=== PATIENT | female | born 1945 | race Caucasian/White ===

== ENCOUNTER 2019-07-30 10:49 | Inpatient (IN) | payer OTHER, BC ==
[~2019-07-30] VITALS: Ht 152.4 cm; Wt 52.6 kg
[2019-07-30 10:55] VITALS: BP 129/74
--- NOTE | 2019-07-30 11:13 | NUR ---
RECEVIED A 74/F FROM EMS FOR MECHANICAL FALL. PT REPORTS THAT SHE WAS IN HER LIVING ROOM AND LOST HER BALANCE. PT DENIES HITTING HEAD. NO LOC. NO ROTATION NOTED. NO OBVIOUS DEFORMITY NOTED. ALERT TO NAME, BIRTHDAY, PLACE, AND EVENT; ABLE TO RECALL ENTIRE FALL. IN BED FOR MSE.
[2019-07-30] MEDS ORDERED: KETOROLAC 60 MG/2 ML VIAL IM ONE (11:25)
--- NOTE | 2019-07-30 11:36 | NUR ---
XRAY AT BEDSIDE.
--- NOTE | 2019-07-30 11:42 | NUR ---
PT REPORTS DECREASE IN PAIN WITH TORADOL ADMIN. RATES PAIN AT 5/10.
--- NOTE | 2019-07-30 13:28 | NUR ---
PT REMAINS IN BED WITH PAIN CONTROLLED. UPDATED ON PLAN OF CARE. NO NEW QUESTIONS OR CONCERNS FROM PATIENT.
[2019-07-30] MEDS ORDERED: ONDANSETRON 4 MG/2 ML VIAL IM/IVP PRN (14:20)
[2019-07-30] MEDS ORDERED: DOCUSATE SODIUM 100 MG GELCAP PO PRN (14:20)
[2019-07-30] MEDS ORDERED: ACETAMINOPHEN 325 MG TAB PO PRN (14:20)
[2019-07-30] MEDS: MORPHINE SULFATE 2 MG/ML SYR IVP PRN ×3 (14:49→23:35)
--- NOTE | 2019-07-30 14:50 | NUR ---
PT C/O 8/10 PAIN; PRN MORPHINE ADMINISTERED
[2019-07-30 14:51] LABS: BASOPHILS % (AUTO) 0.2 % (0.0-2.0); EOSINOPHILS % (AUTO) 0.4 % (0.0-4.0); HEMATOCRIT 36.4 % (36-48); HEMOGLOBIN 11.5 g/dL (12.0-16.0); LYMPHOCYTES # (AUTO) 0.9 K/uL (2.5-16.5); LYMPHOCYTES % (AUTO) 9.8 % (20.5-51.1); MEAN CORPUSCULAR HEMOGLOBIN 31 pg (27-31); MEAN CORPUSCULAR HGB CONC 32 g/dL (33-37); MEAN CORPUSCULAR VOLUME 98.4 fL (80-94); MONOCYTES # (AUTO) 0.7 K/uL (0.8-1.0); MONOCYTES % (AUTO) 7.7 % (1.7-9.3); NEUTROPHILS # (AUTO) 7.1 K/uL (1.8-7.7); NEUTROPHILS % (AUTO) 81.9 % (42.2-75.2); PLATELET COUNT (AUTO) 184 K/uL (140-450); RED BLOOD CELL COUNT(AUTO) 3.69 MIL/uL (4.20-5.40); RED CELL DISTRIBUTION WIDTH 13.5 % (11.6-13.7); WHITE BLOOD COUNT (AUTO) 8.7 K/uL (4.8-10.8)
[2019-07-30 15:28] LABS: APPEARANCE,URINE HAZY (CLEAR); BILIRUBIN,URINE NEGATIVE (NEGATIVE); BLOOD, URINE NEGATIVE (NEGATIVE); COLOR,URINE YELLOW (YELLOW); LEUKOCYTE ESTERASE ,URINE NEGATIVE (NEGATIVE); NITRITE, URINE NEGATIVE (NEGATIVE); PH,URINE 5.5 (5.0-9.0); UGLUCOSE NEGATIVE (NEGATIVE)
[2019-07-30 15:28] LABS: CHOL/HDL RATIO 2.5 (1-4.5); FREE T4 (FREE THYROXINE) 0.77 ng/dL (0.76-1.46); PHOSPHORUS 3.4 mg/dL (2.5-4.9); THYROID STIMULATING HORMONE 0.04 uIU/mL (0.34-3.74)
[2019-07-30 15:34] LABS: BARBITURATE, URINE NEG. ng/ml (NEG <=200); BENZODIAZEPINE, URINE NEG. ng/mL (NEG <=200); CANNABINOID, URINE NEG. ng/mL (NEG <=50); COCAINE, URINE NEG. ng/mL (NEG <=300); OPIATE, URINE POS. ng/mL (NEG <=2000); PHENCYCLIDINE SCREEN,URINE NEG. ng/mL (NEG <=25)
[2019-07-30 15:36] LABS: PROTHROMBIN TIME 10.3 secs (10.8-13.4)
--- NOTE | 2019-07-30 15:46 | NUR ---
Patient will be admitted to care of DR WORRELL. Admited to MED/SURG. Will go to [id number]. Belongings list completed. Report to KIRK SALTER.
[2019-07-30 15:48] LABS: ANION GAP 12.3 (8-16); CARBON DIOXIDE 28.6 mmol/L (21-32); CHLORIDE 107 mmol/L (98-107); CREATININE 0.5 mg/dL (0.6-1.3); GLUCOSE 102 mg/dL (74-106); POTASSIUM 3.9 mmol/L (3.5-5.1); SODIUM SERUM 144 mmol/L (136-145); UREA NITROGEN, BLOOD 21 mg/dL (7-18)
[2019-07-30 16:00] VITALS: BP 133/78
--- NOTE | 2019-07-30 16:00 | NUR ---
RECEIVED REPORT FROM EMERGENCY ROOM NURSE ELISE FOR CONTINUITY OF CARE. PT IN STABLE CONDITION. RESPIRATIONS EVEN AND UNLABORED. SKIN ASSESSMENT COMPLETE. SKIN WARM TO TOUCH. IV INTACT AND PATENT. SAFETY MEASURES IN PLACE. BED IN LOW POSITION. BED ALARM ON. CALL LIGHT AT BEDSIDE. WILL CONTINUE TO MONITOR.
[2019-07-30] MEDS ORDERED: THYR60TA7 PO (17:34)
[2019-07-30] MEDS ORDERED: GABA300C PO (17:34)
[2019-07-30] MEDS ORDERED: LISI-420 PO (17:34)
[2019-07-30] MEDS ORDERED: ALPR0.252 PO (17:34)
[2019-07-30] MEDS ORDERED: VENL37.55 PO (17:34)
[2019-07-30] MEDS ORDERED: BACL10TA4 PO (17:34)
[2019-07-30] MEDS ORDERED: BACLOFEN 10 MG TAB PO PRN (17:40)
--- NOTE | 2019-07-30 17:59 | NUR ---
TALKING WITH SPOUSE AT BEDSIDE. PT IN STABLE CONDITION. BED IN LOW POSITION. BED ALARM ON. CALL LIGHT AT BEDSIDE. WILL CONTINUE TO MONITOR.
--- NOTE | 2019-07-30 19:29 | NUR ---
GAVE REPORT TO DEVELOPMENT SCIENTIST NURSE FOR CONTINUITY OF CARE. PT IN STABLE CONDITION.
--- NOTE | 2019-07-30 19:30 | NUR ---
RECEIVED BEDSIDE REPORT FROM DAY RN. PT IS AAOX4 WITH AT BEDSIDE. NO S/S OF DISTRESS. PT RESPIRATIONS ARE EQUAL AND UNLABORED ON ROOM AIR. LUNG SOUNDS CLEAR. SKIN INTACT PER REPORT. PT ON BEDREST ABLE TO MAKE NEEDS KNOWN. PT WITH LEFT SUPERIOR ISCHIUM AND ISOCHIOPUBIC REMUS FRACTURE. POC DISCUSSED WITH PT AND FAMILY. CALL LIGHT IS WITHIN REACH. WILL CONTINUE TO MONITOR.
--- NOTE | 2019-07-30 20:02 | NUR ---
VSS. PATITO MEDICATION GIVEN PER ORDERS. ADMINISTERED PRN MORPHINE FOR L LEG PAIN 02/12. PT TOLERATED WELL. CALL LIGHT IS WITHIN REACH. WILL CONTINUE TO MONITOR.
[2019-07-30] MEDS: VENLAFAXINE 37.5 MG TAB PO SCH (20:04)
--- NOTE | 2019-07-30 22:00 | NUR ---
VITAL SIGNS ARE WITHIN NORMAL LIMITS. PT DENIES PAIN. NO S/S OF DISTRESS. CALL LIGHT IS WITHIN REACH. WILL CONTINUE TO MONITOR.
[2019-07-31] VITALS: BP 120/64
--- NOTE | 2019-07-31 | NUR ---
VITAL SIGNS ARE WITHIN NORMAL LIMITS. ALL SAFETY MEASURES ARE IN PLACE. CALL LIGHT IS WITHIN REACH. WILL CONTINUE TO MONITOR.
[2019-07-31] MEDS ORDERED: MENTHOL/METHYL 10%-15% 114 GM TUBE TP PRN (01:20)
--- NOTE | 2019-07-31 02:20 | NUR ---
PATIENT IS LAYING IN BED AWAKE. NO S/S OF DISTRESS. SAFETY MEASURES ARE IN PLACE. CALL LIGHT IS WITHIN REACH.
[2019-07-31] MEDS: MORPHINE SULFATE 2 MG/ML SYR IVP PRN ×6 (02:45→20:41)
--- NOTE | 2019-07-31 04:07 | NUR ---
PATIENT IS AWAKE LAYING COMFORTABLY IN BED. SAFETY MEASURES ARE IN PLACE. CALL LIGHT IS WITHIN REACH.
[2019-07-31] MEDS ORDERED: THYROID 60 MG TAB PO SCH ×2 (06:30)
--- NOTE | 2019-07-31 06:51 | NUR ---
PT IS RESTING COMFORTABLY IN BED NO S/S OF DISTRESS. CALL LIGHT IS WITHIN REACH. PT IS STABLE. WILL ENDORSE TO DAY RN.
--- NOTE | 2019-07-31 07:20 | NUR ---
RECEIVED BEDSIDE REPORT FROM NIGHTSHIFT NURSE. PT RESTING IN BED UPON ARRIVAL. RESPIRATIONS EVEN AND UNLABORED WITH NO SOB OR RESPIRATORY DISTRESS. SKIN WARM AND DRY TO TOUCH. IV SITE IN RIGHT HAND 22G IS CLEAN, DRY, AND INTACT. SAFETY MEASURES IN PLACE. WILL CONTINUE TO MONITOR
[2019-07-31 08:00] VITALS: BP 126/73
[2019-07-31 08:08] LABS: T4 (THYROXINE) 5.3 ug/dL (4.5-12.0)
[2019-07-31] MEDS: GABAPENTIN 300 MG CAP PO SCH ×3 (08:16→16:37)
[2019-07-31] MEDS: HYDROcodone/APAP 7.5/325 MG 1 TAB PO PRN (08:16)
[2019-07-31] MEDS: LISINOPRIL 20 MG TAB PO SCH (08:17)
[2019-07-31] MEDS: VENLAFAXINE 37.5 MG TAB PO SCH ×2 (08:17→20:39)
[2019-07-31] MEDS: ALPRAZolam 0.25 MG TAB PO PRN (08:17)
--- NOTE | 2019-07-31 08:24 | NUR ---
ADMINISTERED SCHED MED PRESCRIBED PER MD ORDER. PT TOLERATED WELL. MEDICATION EDUCATION PERFORMED. PT VERBALIZED UNDERSTANDING. SAFETY MEASURES IN PLACE. WILL CONTINUE TO MONITOR.
--- NOTE | 2019-07-31 08:25 | NUR ---
PATIENT HAS BEEN SCREENED AND CATEGORIZED MODERATE NUTRITION RISK. PATIENT WILL BE SEEN WITHIN 3-5 DAYS OF ADMISSION. 08/02/19 08/04/[address]
[2019-07-31 09:18] LABS: BASOPHILS % (AUTO) 0.5 % (0.0-2.0); EOSINOPHILS # (AUTO) 0.1 K/uL (0-0.4); EOSINOPHILS % (AUTO) 2.4 % (0.0-4.0); HEMATOCRIT 35.3 % (36-48); HEMOGLOBIN 11.6 g/dL (12.0-16.0); LYMPHOCYTES # (AUTO) 0.5 K/uL (2.5-16.5); LYMPHOCYTES % (AUTO) 9.3 % (20.5-51.1); MEAN CORPUSCULAR HEMOGLOBIN 31 pg (27-31); MEAN CORPUSCULAR HGB CONC 33 g/dL (33-37); MONOCYTES # (AUTO) 0.5 K/uL (0.8-1.0); MONOCYTES % (AUTO) 8.2 % (1.7-9.3); NEUTROPHILS # (AUTO) 4.6 K/uL (1.8-7.7); NEUTROPHILS % (AUTO) 79.6 % (42.2-75.2); PLATELET COUNT (AUTO) 158 K/uL (140-450); RED BLOOD CELL COUNT(AUTO) 3.72 MIL/uL (4.20-5.40); RED CELL DISTRIBUTION WIDTH 13.3 % (11.6-13.7); WHITE BLOOD COUNT (AUTO) 5.8 K/uL (4.8-10.8)
[2019-07-31 09:34] LABS: ANION GAP 12.1 (8-16); CARBON DIOXIDE 28.6 mmol/L (21-32); CHLORIDE 104 mmol/L (98-107); CREATININE 0.6 mg/dL (0.6-1.3); GLUCOSE 183 mg/dL (74-106); POTASSIUM 3.7 mmol/L (3.5-5.1); SODIUM SERUM 141 mmol/L (136-145); UREA NITROGEN, BLOOD 17 mg/dL (7-18)
[2019-07-31 09:37] LABS: MAGNESIUM 1.9 mg/dL (1.8-2.4); PHOSPHORUS 2.4 mg/dL (2.5-4.9)
--- NOTE | 2019-07-31 10:26 | NUR ---
LEFT KNEE ABRASIONS WITH 2 PARTIAL THICKNESS LOSS OF SKIN AND LARGEST 1X1X0.1CM, SMALLEST ONE IS 0.5X0.5X0.1CM, WOUND BEDS ARE RED, MOIST, NO ODOR, HANH WOUND SKIN INTACT, NO ERYTHEMA, NO S/S OF INFECTION. POC DISCUSSED WITH PT. PT. VERBALIZES UNDERSTANDING. RECOMMEND TO CLEANSE LEFT KNEE ABRASIONS WITH NS. PAT DRY, APPLY HYDROGEL AND COVER WITH ISLAND DRESSING QD AND PRN IF SOILING.
--- NOTE | 2019-07-31 10:30 | NUR ---
HOURLY ROUNDING. PT RESTING IN BED UPON ARRIVAL. RESPIRATIONS EVEN AND UNLABORED WITH NO SOB OR RESPIRATORY DISTRESS. SKIN WARM AND DRY TO TOUCH. SAFETY MEASURES IN PLACE. WILL CONTINUE TO MONITOR
--- NOTE | 2019-07-31 10:52 | NUR ---
DISCHARGE PLANNING: THIS IS A 74 Y/O FEMALE PATIENT FROM HOME, WHO CAME IN DUE TO MECHANICAL FALL. PAST MEDICAL HISTORY INCLUDE HYPOTHYROIDISM, NUMEROUS BACK SURGERIES, BROKEN TIBIA AND FIBULA. INITIAL DIAGNOSIS OF LEFT SUPERIOR ISCHIUM AND ISCHIOPUBIC RAMUS FRACTURE. CURRENT LABS INCLUDE WBC 5.8, H/H 11.6/35.3, NA/K 144/3.9, BUN/CREA 21/0.5. ORTHO CONSULT WITH DR. NOEL IN PLACE, NO SURGERY AT THIS TIME AND MAY AMBULATE WITH A WALKER TOLERATED. BENJA HARO PENDING. DC PLAN TO SNF FOR PT ONCE STABLE. Addendum: 07/31/19 at 1149 by Dorie Castillo CM MET WITH THE PATIENT AT THE BEDSIDE TO DISCUSS DC PLAN TO SNF FOR PT AND IS IN AGREEMENT. SHE STATED "THAT IS THE BEST OPTION WE HAVE AT THIS TIME." IM AND CHOICE OF VENDOR LETTERS PROVIDED TO THE PATIENT, SHE STATED SHE WILL WAIT FOR HER TO READ AND SIGN IT. WILL FOLLOW UP.
--- NOTE | 2019-07-31 12:22 | NUR ---
HOURLY ROUNDING. PT ASLEEP IN BED. RESPONSIVE TO VERBAL AND TACTILE STIMULI. ABLE TO MAKE NEEDS KNOWN. RESPIRATIONS EVEN AND UNLABORED WITH NO SOB OR RESPIRATORY DISTRESS. SKIN WARM AND DRY TO TOUCH. SAFETY MEASURES IN PLACE. WILL CONTINUE TO MONITOR
[2019-07-31] MEDS: SKINTEGRITY HYDROGEL TP SCH (13:24)
--- NOTE | 2019-07-31 13:25 | NUR ---
ADMINISTERED SCHED MED PRESCRIBED PER MD ORDER. PT TOLERATED WELL. PT CALLED AND COMPLAINED OF SEVERE PAIN. PRN PAIN MEDICATION ADMINISTERED PRESCRIBED PER MD ORDER. MEDICATION EDUCATION PERFORMED. PT VERBALIZED UNDERSTANDING. SAFETY MEASURES IN PLACE. WILL CONTINUE TO MONITOR.
[2019-07-31 16:00] VITALS: BP 117/66
--- NOTE | 2019-07-31 16:41 | NUR ---
ADMINISTERED SCHED MED PRESCRIBED PER MD ORDER. PT TOLERATED WELL. MEDICATION EDUCATION PERFORMED. PT VERBALIZED UNDERSTANDING. SAFETY MEASURES IN PLACE. WILL CONTINUE TO MONITOR.
--- NOTE | 2019-07-31 18:20 | NUR ---
PT RESTING IN BED UPON ARRIVAL. ABLE TO MAKE NEEDS KNOWN.RESPIRATIONS EVEN AND UNLABORED WITH NO SOB OR RESPIRATORY DISTRESS. SKIN WARM AND DRY TO TOUCH. SAFETY MEASURES IN PLACE. WILL CONTINUE TO MONITOR
--- NOTE | 2019-07-31 19:02 | NUR ---
ENDORSED AT BEDSIDE TO NIGHTSHIFT NURSE. PT RESTING IN BED UPON ARRIVAL. ABLE TO MAKE NEEDS KNOWN.RESPIRATIONS EVEN AND UNLABORED WITH NO SOB OR RESPIRATORY DISTRESS. SKIN WARM AND DRY TO TOUCH. SAFETY MEASURES IN PLACE. PT IS STABLE
--- NOTE | 2019-07-31 19:05 | NUR ---
RECEIVED BEDSIDE REPORT FROM DAY RN. PT IS AAOX4 . PT RESPIRATIONS ARE EQUAL AND UNLABORED ON ROOM AIR. LUNG SOUNDS CLEAR. HAS ABRASION ON L KNEE COVERED WITH ISLAND DRESSING. C/D/I. PT WITH LEFT SUPERIOR ISCHIUM AND ISOCHIOPUBIC REMUS FRACTURE. PT ON BEDREST ABLE TO MAKE NEEDS KNOWN. POC DISCUSSED WITH PT AND FAMILY. CALL LIGHT IS WITHIN REACH. WILL CONTINUE TO MONITOR.
--- NOTE | 2019-07-31 20:41 | NUR ---
PATITO MEDICATIONS GIVEN. ADMINISTERED MORPHINE PRN FOR SEVERE HIP PAIN 02/12 PT TOLERATED WELL. PSS DELIVERY PROFESSIONAL AT BEDSIDE REGARDING PATIENT'S BANK ACCOUNT FRAUD FROM MONTHS AGO. PT IS STABLE. ALL NEEDS MET. WILL CONTINUE TO MONITOR.
--- NOTE | 2019-07-31 22:23 | NUR ---
PT IS SLEEPING COMFORTABLY IN BED WITH EYES CLOSED. CHEST RISE AND FALL NOTED. ALL SAFETY MEASURES ARE IN PLACE. CALL LIGHT IS WITHIN REACH.
[2019-08-01] VITALS: BP 135/83
[2019-08-01] MEDS: MORPHINE SULFATE 2 MG/ML SYR IVP PRN ×5 (00:26→21:42)
--- NOTE | 2019-08-01 00:26 | NUR ---
VITAL SIGNS ARE WITHIN NORMAL LIMITS. C/C L HIP PAIN 9/10 PRN MORPHINE GIVEN PER ORDERS. PT TOLERATED WELL. ALL SAFETY MEASURES ARE IN PLACE. WILL CONTINUE TO MONITOR.
--- NOTE | 2019-08-01 02:02 | NUR ---
PATIENT IS SLEEPING COMFORTABLY IN BED WITH EYES CLOSED. NO S/S OF DISTRESS. CHEST RISE AND FALL NOTED.
--- NOTE | 2019-08-01 04:30 | NUR ---
PATIENT IS LAYING COMFORTABLY IN BED. NO S/S OF DISTRESS. CALL LIGHT IS WITHIN REACH. WILL CONTINUE TO MONITOR.
[2019-08-01 06:59] LABS: BASOPHILS # (AUTO) 0.1 K/uL (0.00-0.22); BASOPHILS % (AUTO) 1.5 % (0.0-2.0); EOSINOPHILS # (AUTO) 0.2 K/uL (0-0.4); EOSINOPHILS % (AUTO) 3.2 % (0.0-4.0); HEMATOCRIT 35.5 % (36-48); HEMOGLOBIN 11.8 g/dL (12.0-16.0); LYMPHOCYTES # (AUTO) 0.7 K/uL (2.5-16.5); LYMPHOCYTES % (AUTO) 10.6 % (20.5-51.1); MEAN CORPUSCULAR HEMOGLOBIN 32 pg (27-31); MEAN CORPUSCULAR HGB CONC 33 g/dL (33-37); MEAN CORPUSCULAR VOLUME 94.7 fL (80-94); MONOCYTES # (AUTO) 0.6 K/uL (0.8-1.0); MONOCYTES % (AUTO) 9.5 % (1.7-9.3); NEUTROPHILS % (AUTO) 75.2 % (42.2-75.2); PLATELET COUNT (AUTO) 156 K/uL (140-450); RED BLOOD CELL COUNT(AUTO) 3.74 MIL/uL (4.20-5.40); RED CELL DISTRIBUTION WIDTH 13.1 % (11.6-13.7); WHITE BLOOD COUNT (AUTO) 6.6 K/uL (4.8-10.8)
--- NOTE | 2019-08-01 07:07 | NUR ---
GAVE BEDSIDE REPORT TO DAY RN. PT ENDORSED IN STABLE CONDITION.
[2019-08-01 07:17] LABS: PHOSPHORUS 2.3 mg/dL (2.5-4.9)
[2019-08-01 07:18] LABS: ANION GAP 10.1 (8-16); CARBON DIOXIDE 28.8 mmol/L (21-32); CHLORIDE 104 mmol/L (98-107); CREATININE 0.5 mg/dL (0.6-1.3); GLUCOSE 105 mg/dL (74-106); POTASSIUM 3.9 mmol/L (3.5-5.1); SODIUM SERUM 139 mmol/L (136-145); UREA NITROGEN, BLOOD 16 mg/dL (7-18)
--- NOTE | 2019-08-01 07:46 | NUR ---
RECEIVED BEDSIDE REPORT FROM PM RN PT AWAKE IN BED PT APPEARS STABLE AND IN NO APPARENT DISTRESS. ALL SAFETY MEASURES ARE IN PLACE WILL CONTINUE TO MONITOR.
[2019-08-01 08:30] VITALS: BP 130/72
--- NOTE | 2019-08-01 09:13 | NUR ---
FREQUENT ROUNDING ON PT PT AWAKE IN BED PT FAMILY IS AT BEDSIDE. ALL SAFETY MEASURES ARE IN PLACE WILL CONTINUE TO MONITOR
[2019-08-01] MEDS: GABAPENTIN 300 MG CAP PO SCH ×3 (09:14→17:39)
[2019-08-01] MEDS: LISINOPRIL 20 MG TAB PO SCH (09:14)
[2019-08-01] MEDS: VENLAFAXINE 37.5 MG TAB PO SCH ×2 (09:14→21:20)
[2019-08-01] MEDS: HYDROcodone/APAP 7.5/325 MG 1 TAB PO PRN (10:44)
--- NOTE | 2019-08-01 10:44 | NUR ---
NORCO ADMINISTERED FOR PRN MEDICATION FOR PATIENT PAIN 11/12. WILL CONTINUE TO ASSESS PATIENT.
--- NOTE | 2019-08-01 11:15 | NUR ---
Sand Worker Note: I met with patient at bedside. Patient alert and oriented x4. Per patient, she would like to be transferred to [facility] upon discharge. I faxed inquiry to [facility]. Melodie from [facility] came and met with patient and patient's . Per Melodie from [facility], patient has been accepted and may go to room 238B upon discharge, accepting MD is , made aware. Addendum: 08/02/19 at 1115 by Radha Hitchcock CM Pt to be DC to [facility] today, transportation arranged with [facility] through pt's insurance; medical necessity form faxed. Met with pt at the bedside to update her about discharge at 1300. Pt aware and agreeable; pt stated she will inform her . Nursing staff aware. INEZ Newton/DOROTHY
--- NOTE | 2019-08-01 13:00 | NUR ---
FREQUENT ROUNDING ON PT PT APPEARS STABLE AND IN NO APPARENT DISTRESS. ALL SAFETY MEASURES ARE IN PLACE WILL CONTINUE TO MONITOR.
[2019-08-01] MEDS: SKINTEGRITY HYDROGEL TP SCH (13:29)
--- NOTE | 2019-08-01 13:29 | NUR ---
ADMINISTERED MORPHINE IVP PRN FOR PAIN PER PATIENT REQUEST PT STATED 8/10 PAIN IN HER LEG. WILL CONTINUE TO MONITOR PT.
--- NOTE | 2019-08-01 15:34 | NUR ---
FREQUENT ROUNDING ON PT PT APPEARS STABLE AND IN NO APPARENT DISTRESS. ALL SAFETY MEASURES ARE IN PLACE WILL CONTINUE TO MONITOR
--- NOTE | 2019-08-01 16:00 | NUR ---
MEDICATION FOLLOW UP. GABI THYROID MEDICATION WILL BE BROUGHT FROM HOME BY PATIENTS TOMORROW 08/02. Addendum: 08/01/19 at 1721 by Jazmine Diaz RN PHARMACIST MINOO MADE AWARE.
[2019-08-01 16:14] VITALS: BP 91/56
--- NOTE | 2019-08-01 17:34 | NUR ---
FREQUENT ROUNDING ON PT PT APPEARS STABLE AND IN NO APPARENT DISTRESS. ALL SAFETY MEASURES ARE IN PLACE
--- NOTE | 2019-08-01 19:18 | NUR ---
ENDORSED PT TO PM RN PT AWAKE IN BED PT APPEARS STABLE AND IN NO APPARENT DISTRESS, ALL SAFETY MEASURES ARE IN PLACE WILL CONTINUE TO MONITOR.
--- NOTE | 2019-08-01 19:19 | NUR ---
RECD. RESTING IN BED, AWAKE, A/OX4. RESPIRATION EVEN AND UNLABORED. IV SALINE LOCK AT THE RIGHT HAND G22, PATENT AND INTACT. SAFETY MEASURES ENFORCED. BED IN THE LOWEST POSITION, CALL LIGHT IN REACH. PAIN IN THE LEFT HIP 1/10, STATED TOLERABLE. PLAN OF CARE FOR THE SHIFT DISCUSSED. VERBALIZED UNDERSTANDING. DENIES PAIN 0/10.
[2019-08-01 20:00] VITALS: BP 123/65
--- NOTE | 2019-08-01 21:00 | NUR ---
ASSISTED WITH THE BED NELSON TO VOID. VOIDED 100 ML DARK YELLOW URINE.
--- NOTE | 2019-08-01 23:00 | NUR ---
ASSISTED WITH THE BEDPAN TO VOID.
--- NOTE | 2019-08-01 23:28 | NUR ---
Patient's Plan of Care was discussed and reviewed with WALL MAN: MAGDALENA KING
--- NOTE | 2019-08-02 00:30 | NUR ---
SLEEPING COMFORTABLY IN BED.
[2019-08-02] MEDS: MORPHINE SULFATE 2 MG/ML SYR IVP PRN ×3 (00:34→06:43)
--- NOTE | 2019-08-02 02:00 | NUR ---
ASSISTED WITH THE BEDPAN TO VOID.
[2019-08-02 03:37] VITALS: BP 110/62
--- NOTE | 2019-08-02 04:00 | NUR ---
SLEEPING COMFORTABLY IN BED.
--- NOTE | 2019-08-02 06:45 | NUR ---
WITH ANXIETY, MEDICATED WITH XANAX PER MD ORDER.
[2019-08-02] MEDS: ALPRAZolam 0.25 MG TAB PO PRN (06:48)
--- NOTE | 2019-08-02 07:17 | NUR ---
CONDITION REMAIN STABLE. SLEEPING COMFORTABLY IN BED. ENDORSED TO AM SHIFT NURSE FOR CONTINUITY OF CARE.
--- NOTE | 2019-08-02 07:18 | NUR ---
RECEIVED BEDSIDE REPORT FROM WRIST LINER NURSE. PT LYING IN BED SUPINE. AA&OX4. RESPIRATIONS EVEN AND UNLABORED ON RA. DENIES PAIN. NO SIGNS OF DISTRESS NOTED. SKIN CLEAN AND DRY. IV ON R HAND 22 G, DRY, PATENT, AND INTACT, SALINE LOCK. ABRASION ON LEFT KNEE, COVERED WITH DRESSING. DRESSING IS CLEAN AND DRY. PATIENT IS ABLE TO USE THE BEDPAN WITH ASSIST. DISCUSSED PLAN OF CARE WITH PATIENT AND PATIENT VERBALIZED UNDERSTANDING. SAFETY MEASURES IN PLACE. CALL LIGHT WITHIN REACH, BED IN LOW POSITION. WILL CONTINUE TO MONITOR.
[2019-08-02 08:00] VITALS: BP 117/67
[2019-08-02] MEDS: VENLAFAXINE 37.5 MG TAB PO SCH (09:09)
[2019-08-02] MEDS: GABAPENTIN 300 MG CAP PO SCH ×2 (09:09→13:27)
[2019-08-02] MEDS: LISINOPRIL 20 MG TAB PO SCH (09:09)
--- NOTE | 2019-08-02 09:10 | NUR ---
CHECKED BP PRIOR TO MEDS ADMINISTRATION, BP 110/ 59 PULSE 102, DENIED PAIN, SOB AND DIZZINESS. ADMINISTERED MEDS PER MD ORDER, MEDS EDUCATION PROVIDED TO PT AND PT VERBALIZED UNDERSTANDING. PT TOLERATED PO MEDS WELL. PT IS EATING BANANA AND USING HER PHONE ON BED AT THIS TIME. NO SIGNS OF DISTRESS NOTED. SAFETY MEASURES IN PLACE. BED ALARM ACTIVATED. INSTRUCTED PT TO USE THE CALL LIGHT FOR ANY ASSISTANCE AND PT AWARE.
--- NOTE | 2019-08-02 11:22 | NUR ---
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 PT AWAKE AND LOOKING INTO HER PURSE AT THIS TIME. DENIED PAIN, SOB AND DIZZINESS. NO SIGNS OF DISTRESS NOTED. SAFETY MEASURES IN PLACE. BED ALARM ACTIVATED.
--- NOTE | 2019-08-02 11:25 | NUR ---
SPOKE WITH PT'S BONIFACIO WITH PT'S CELLPHONE. 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 BONIFACIO WAS AWARE AND AGREEABLE. PT IS TALKING TO BONIFACIO AT THIS TIME. NO SIGNS OF DISTRESS NOTED. SAFETY MEASURES IN PLACE. BED ALARM ACTIVATED.
--- NOTE | 2019-08-02 11:29 | NUR ---
CALLED [facility] AND SPOKE WITH VITA BRADLEY. PROVIDED FULL REPORT AND ANSWERED ALL VITA'S QUESTIONS. VITA WAS AWARE THAT PT IS GOING TO TRANSFER TO HER FACILITY AT 1300 FOR PT. PROVIDED A CALL BACK NUMBER TO VITA FOR ANY FURTHER INQUIRY.
[2019-08-02] MEDS: HYDROcodone/APAP 7.5/325 MG 1 TAB PO PRN (11:58)
--- NOTE | 2019-08-02 11:58 | NUR ---
PT COMPLAINED SHE HAS 6/10 PAIN ON HER KNEE, REPOSITIONED AND TAUGHT RELAXATION TECHNIQUE, PT STATED "I STILL HAVE PAIN." MEDICATED WITH PRN PAIN MED NORCO PO, MED EDUCATION PROVIDED TO PT, AND PT SAID OK. PT TOLERATED MED WELL. PT AWAKE AND RESTING ON BED AT THIS TIME. NO SIGNS OF DISTRESS NOTED. SAFETY MEASURES IN PLACE. BED ALARM ACTIVATED.
--- NOTE | 2019-08-02 12:31 | NUR ---
WOUND CARE PROVIDED, CLEANSED WITH NS AND PAD DRY. APPLIED DRESSING AND SECURE. WOUND EDUCATION PROVIDED TO PT AND PT SAID OK. WOUND PICTURE TAKEN. PT TOLERATED WELL. NO SIGNS OF DISTRESS NOTED. PT IS GOING TO HAVE LUNCH AT THIS TIME. SAFETY MEASURES IN PLACE. BED ALARM ACTIVATED.
[2019-08-02] MEDS: SKINTEGRITY HYDROGEL TP SCH (13:28)
--- NOTE | 2019-08-02 13:28 | NUR ---
ADMINISTERED MED PER MD ORDER, MED EDUCATION PROVIDED AND PT TOLERATED WELL. [facility] IS AT BEDSIDE. PT IS GETTING READY FOR TRANSFER. NO SIGNS OF DISTRESS NOTED.
--- NOTE | 2019-08-02 13:40 | NUR ---
DISCHARGE INSTRUCTION PROVIDED TO PT AT BEDSIDE. EDUCATED PT ON FOLLOW UP WITH MD, DIAGNOSIS, MEDICATION REGIMEN, SIDE EFFECTS, WEIGHTBEARING, WOUND CARE AND LIFE STYLE. ANSWERED ALL PT'S QUESTIONS AND PT VERBALIZED UNDERSTANDING. REMOVED IV AND CANNULA INTACT AND NO BLEEDING AT IV SITE. REMOVED ALL ARM BANDS. PT CHANGED INTO PINK BY SALES MARKETING MANAGER. PT IS UP TO DATE WITH ALL VACCINATION. PROVIDED PRINTED OUT DISCHARGE PACKAGE TO PT. PT TOOK ALL HER BELONGINGS. PT IS GOING TO TRANSFER AT THIS TIME ACCOMPANY BY [facility] TRANSPORTATION PERSONNEL. PT IS IN STABLE CONDITION.
== END 2019-08-02 13:40 | DRG 536 ==
LOC: MED 10:49 → EDBEDREQTM 14:02 → MTU 14:16
PROVIDERS: ADMIT General Practice; ATTEND General Practice
DX: S32.512A Fracture of superior rim of left pubis, initial encounter for closed fracture (principal); E03.9 Hypothyroidism, unspecified; Z87.891 Personal history of nicotine dependence; Z90.49 Acquired absence of other specified parts of digestive tract; Z98.51 Tubal ligation status; I51.7 Cardiomegaly; M54.9 Dorsalgia, unspecified; F39 Unspecified mood [affective] disorder; W18.39XA Other fall on same level, initial encounter; Y93.89 Activity, other specified; Y92.89 Other specified places as the place of occurrence of the external cause; Y99.8 Other external cause status
CPT/HCPCS: 36415; 71045; 73502; 73700; 80048; 80305; 81003; 82150; 83036; 83605; 83690; 83735; 83880; 84100; 84436; 84439; 84443; 84479; 84484; 85025; 85610; 85730; 87081; 93005; 96372; 96374; 97110; 97112; 97116; 97161-GP; 97530; 99285; A6248; J1644; J1885; J2270; Q0092

== ENCOUNTER 2022-05-17 12:57 | Emergency (ER) | payer OTHER, BC ==
[~2022-05-17] VITALS: Ht 152.4 cm; Wt 54.9 kg
[~2022-05-17 12:57] MED LIST: CALC-1646 PO; CARV6.25 PO; LISI5TAB18 PO; THYR60TA7 PO; VENL37.55 PO
--- NOTE | 2022-05-17 13:00 | NUR ---
Nancy berumen in ED - 05/17/22 at 1303 by MEDRJJ [pt to er bed [facility]
[2022-05-17 13:28] VITALS: BP 109/66
--- NOTE | 2022-05-17 13:34 | NUR ---
PT AMBULATED TO BED 5
--- NOTE | 2022-05-17 13:45 | NUR ---
77YO FEMALE PT C/O GENERAL WEAKNESSED AND LIGHTHEADEDNESS X"FEWDAYS". PT STATES FEELING "LOW IN ENERGY" AND SLEEPING MORE THAN USUAL. IMCHAEL CLEAR LUNG SOUNDS. DENIES N/V/D, FEVER, CHILLS, CHEST PAIN OR SOB. PT AAOX4, RESPIRATIONS EVEN AND UNLABORED. AMBULATORY USING WALKER. HX: HTN, HYPOTHYROID, CHF NKA
[2022-05-17] MEDS ORDERED: NACL 0.9% 500 ML IV ONE (14:25)
--- NOTE | 2022-05-17 14:45 | NUR ---
XRAY AT BEDSIDE
--- NOTE | 2022-05-17 14:47 | NUR ---
LAB AT BEDSIDE
--- NOTE | 2022-05-17 14:47 | NUR ---
pt swabbed for covid(radha) and flu. handed to lab
[2022-05-17 15:01] LABS: BASOPHILS % (AUTO) 0.5 % (0.0-2.0); EOSINOPHILS % (AUTO) 0.7 % (0.0-4.0); HEMATOCRIT 40.5 % (36-48); HEMOGLOBIN 13.3 g/dL (12.0-16.0); LYMPHOCYTES % (AUTO) 14.1 % (20.5-51.1); MEAN CORPUSCULAR HEMOGLOBIN 31 pg (27-31); MEAN CORPUSCULAR HGB CONC 33 g/dL (33-37); MEAN CORPUSCULAR VOLUME 93.7 fL (80-94); MONOCYTES # (AUTO) 0.7 K/uL (0.8-1.0); MONOCYTES % (AUTO) 10.4 % (1.7-9.3); NEUTROPHILS # (AUTO) 5.4 K/uL (1.8-7.7); NEUTROPHILS % (AUTO) 74.3 % (42.2-75.2); PLATELET COUNT (AUTO) 169 K/uL (140-450); RED BLOOD CELL COUNT(AUTO) 4.32 MIL/uL (4.20-5.40); RED CELL DISTRIBUTION WIDTH 13.5 % (11.6-13.7); WHITE BLOOD COUNT (AUTO) 7.2 K/uL (4.8-10.8)
[2022-05-17 15:24] LABS: ALBUMIN 3.4 g/dL (3.4-5.0); ANION GAP 11.4 (8-16); ASPARTATE AMINOTRANSFERASE 23 U/L (15-37); CARBON DIOXIDE 28.8 mmol/L (21-32); CHLORIDE 106 mmol/L (98-107); GLUCOSE 105 mg/dL (74-106); POTASSIUM 4.2 mmol/L (3.5-5.1); SODIUM SERUM 142 mmol/L (136-145); TOTAL BILIRUBIN 0.5 mg/dL (0.0-1.0); UREA NITROGEN, BLOOD 32 mg/dL (7-18)
[2022-05-17 17:04] LABS: BILIRUBIN,URINE NEGATIVE (NEGATIVE); BLOOD, URINE TRACE-I (NEGATIVE); COLOR,URINE YELLOW (YELLOW); LEUKOCYTE ESTERASE ,URINE 1+ (NEGATIVE); NITRITE, URINE NEGATIVE (NEGATIVE); UGLUCOSE NEGATIVE (NEGATIVE)
[2022-05-17 17:10] LABS: APPEARANCE,URINE HAZY (CLEAR)
[2022-05-17 17:27] LABS: RBC,URINE 0-5 /HPF (0-5); WBC,URINE 0-5 /HPF (0-5)
[2022-05-17] MEDS ORDERED: CEPH-588 PO (17:31)
[2022-05-17] MEDS ORDERED: cefTRIAXone 1,000 MG VIAL ONE (17:34)
--- NOTE | 2022-05-17 18:20 | NUR ---
IV removed, catheter intact and site benign. Applied folded 4x4 gauze and tape to stop bleeding.
[2022-05-17 18:25] VITALS: BP 120/66
--- NOTE | 2022-05-17 18:25 | NUR ---
Patient discharged with v/s stable. Written and verbal after care instructions FOR UTI AND DEHYDRATION given and explained. Patient alert, oriented and verbalized understanding of instructions. Ambulatory with steady gait. All questions addressed prior to discharge. ID band removed. Patient advised to follow up with PMD. Rx of KEFLEX given. Opportunity to ask questions provided and answered.
--- NOTE | 2022-05-17 19:43 | NUR ---
Chart checked and completed. The patient's care was reviewed and supervised by Haily Yun RN.
== END 2022-05-17 18:25 | disposition home or self-care (01) ==
LOC: MED 12:57
DX: N39.0 Urinary tract infection, site not specified (principal); Z20.822 Contact with and (suspected) exposure to COVID-19; E86.0 Dehydration; I11.0 Hypertensive heart disease with heart failure; I50.9 Heart failure, unspecified; E03.9 Hypothyroidism, unspecified; Z79.899 Other long term (current) drug therapy
CPT/HCPCS: 36415; 71045; 80053; 81001; 85025; 87086; 87426; 87804; 93005; 96361; 96365; 99285; J0696; J7030; Q0092

== ENCOUNTER 2022-07-13 14:21 | Inpatient (IN) | payer OTHER, BC ==
[~2022-07-13] VITALS: Ht 167.6 cm; Wt 52.2 kg
[~2022-07-13 14:21] MED LIST changes: +CEPH-588 PO
--- NOTE | 2022-07-13 14:23 | NUR ---
Pt to bed 12 from [facility] sim[facility]
[2022-07-13 14:26] VITALS: BP 106/60
--- NOTE | 2022-07-13 14:48 | NUR ---
Pt hypotensive recycled B/P called Dr Esposito to bedside. Placed pt in tredenlenberg position. Denies any s/sx of hypotention at this time
[2022-07-13] MEDS ORDERED: NACL 0.9% 500 ML IV ONE (15:00)
[2022-07-13 15:23] LABS: BASOPHILS % (AUTO) 0.4 % (0.0-2.0); EOSINOPHILS # (AUTO) 0.1 K/uL (0-0.4); EOSINOPHILS % (AUTO) 1.3 % (0.0-4.0); HEMATOCRIT 44.3 % (36-48); HEMOGLOBIN 14.5 g/dL (12.0-16.0); LYMPHOCYTES % (AUTO) 15.3 % (20.5-51.1); MEAN CORPUSCULAR HEMOGLOBIN 31 pg (27-31); MEAN CORPUSCULAR HGB CONC 33 g/dL (33-37); MEAN CORPUSCULAR VOLUME 93.5 fL (80-94); MONOCYTES # (AUTO) 0.7 K/uL (0.8-1.0); MONOCYTES % (AUTO) 11.2 % (1.7-9.3); NEUTROPHILS # (AUTO) 4.7 K/uL (1.8-7.7); NEUTROPHILS % (AUTO) 71.8 % (42.2-75.2); PLATELET COUNT (AUTO) 122 K/uL (140-450); RED BLOOD CELL COUNT(AUTO) 4.73 MIL/uL (4.20-5.40); RED CELL DISTRIBUTION WIDTH 13.1 % (11.6-13.7); WHITE BLOOD COUNT (AUTO) 6.6 K/uL (4.8-10.8)
--- NOTE | 2022-07-13 15:35 | NUR ---
Pt found sitting up in bed from radiology with low B/P educated department and pt placed in trendenlenberg with pt pressure raising
[2022-07-13 15:44] LABS: ALBUMIN 3.5 g/dL (3.4-5.0); ANION GAP 11.6 (8-16); ASPARTATE AMINOTRANSFERASE 49 U/L (15-37); CARBON DIOXIDE 27.4 mmol/L (21-32); CHLORIDE 106 mmol/L (98-107); CREATININE 1.1 mg/dL (0.6-1.3); GLUCOSE 136 mg/dL (74-106); SODIUM SERUM 141 mmol/L (136-145); TOTAL BILIRUBIN 0.3 mg/dL (0.0-1.0); UREA NITROGEN, BLOOD 18 mg/dL (7-18)
--- NOTE | 2022-07-13 16:20 | NUR ---
Pt returned from CT. IV out of placed. Replaced with new one on RFA 22g
[2022-07-13] MEDS ORDERED: AZITHROMYCIN 500 MG in DEXTROSE 5% 250 ML IV ONE (17:20)
[2022-07-13] MEDS ORDERED: cefTRIAXone 1,000 MG VIAL ONE (17:28)
[2022-07-13] MEDS ORDERED: AZITHROMYCIN 500 MG INJ VIAL IV ONE (17:28)
[2022-07-13] MEDS ORDERED: ALBUTEROL 0.083% 2.5 MG/3 ML NEBU INH PRN (18:10)
[2022-07-13] MEDS ORDERED: NACL 0.9% 1,000 ML IV ONE (18:10)
[2022-07-13] MEDS ORDERED: ACETAMINOPHEN 325 MG TAB PO PRN (18:15)
[2022-07-13] MEDS ORDERED: ZOLPIDEM 10 MG TAB PO PRN (18:15)
[2022-07-13] MEDS ORDERED: DOCUSATE SODIUM 100 MG GELCAP PO PRN (18:15)
[2022-07-13] MEDS ORDERED: POTASSIUM CHLORIDE 10 MEQ TABER PO PRN (18:15)
[2022-07-13] MEDS ORDERED: ONDANSETRON 4 MG/2 ML VIAL IVP PRN (18:15)
[2022-07-13] MEDS ORDERED: MAG SULF 2000 MG/WATER PREMIX 50 ML IV PRN (18:15)
[2022-07-13] MEDS ORDERED: LORazepam 2 MG/ML VIAL IVP PRN (18:15)
[2022-07-13 18:23] LABS: APPEARANCE,URINE CLEAR (CLEAR); BILIRUBIN,URINE NEGATIVE (NEGATIVE); BLOOD, URINE NEGATIVE (NEGATIVE); COLOR,URINE YELLOW (YELLOW); LEUKOCYTE ESTERASE ,URINE NEGATIVE (NEGATIVE); NITRITE, URINE NEGATIVE (NEGATIVE); UGLUCOSE NEGATIVE (NEGATIVE)
--- NOTE | 2022-07-13 18:28 | NUR ---
COVID test done and walked down to lab.
--- NOTE | 2022-07-13 19:17 | NUR ---
Pt report given to KIRK Mendez. Transfer of care at this time.
--- NOTE | 2022-07-13 20:03 | NUR ---
BELONGINGS LIST DONE.
[2022-07-13] MEDS: carvediloL 6.25 MG TAB PO SCH (20:40)
--- NOTE | 2022-07-13 20:50 | NUR ---
Patient will be admitted to care of ALYSSA GUTIERREZ. Admited to TELEMETRY. Will go to room 106B. Belongings list completed. Report to BRANNON BRADLEY.
--- NOTE | 2022-07-13 21:10 | NUR ---
RECEIVED ENDORSEMENT FROM ER . PT CAME IN VIA [employer]. AWAKE, ALERT AND VERBALLY RESPONSIVE. PT IS ADMITTED WITH CHIEF COMPLAINTS OF SYNCOPE AND LOOSE STOOL FOR SEVERAL DAYS, DIAGNOSIS IS SYNCOPE. PT WITH HISTORY OF CHF AND HYPOTENSION. PT IS FULL CODE AND ABLE TO AMBULATE WITH ASSIST. PT IS ON ROOM AIR WITH O2 SAT 98-100%. SHE IS ON CARDIAC DIET. IV SITE IS SALINE LOCK ON RIGHT FOREARM 22G, INTACT AND PATENT. MRSA SAMPLE FROM [facility]ARES TAKEN AND SENT TO LAB. ORIENT PT TO THE ROOM. CONTINUE TO MONITOR.
[2022-07-13] MEDS: MORPHINE SULFATE 2 MG/ML SYR IVP PRN (22:42)
--- NOTE | 2022-07-13 22:42 | NUR ---
PT COMPLAINTS OF BACK ACHE 11/12, PAIN MEDICATION MORPHINE ADMINISTERED ORDER.
--- NOTE | 2022-07-13 23:42 | NUR ---
PT IS ASLEEP. NO FACIAL GRIMACING. NO SOB OR DISTRESS.
[2022-07-14 04:00] VITALS: BP 144/84
[2022-07-14] MEDS: MORPHINE SULFATE 2 MG/ML SYR IVP PRN ×3 (04:56→17:27)
--- NOTE | 2022-07-14 04:56 | NUR ---
PT COMPLAINTS OF BACK PAIN OF 6/10. PAIN MEDICATION MORPHINE ADMINISTERED.
--- NOTE | 2022-07-14 05:56 | NUR ---
PT IS SLEEPING. NO FACIAL GRIMACING.
[2022-07-14 07:10] LABS: BASOPHILS % (AUTO) 0.4 % (0.0-2.0); EOSINOPHILS # (AUTO) 0.1 K/uL (0-0.4); EOSINOPHILS % (AUTO) 2.1 % (0.0-4.0); HEMOGLOBIN 13.5 g/dL (12.0-16.0); LYMPHOCYTES # (AUTO) 1.4 K/uL (2.5-16.5); LYMPHOCYTES % (AUTO) 34.6 % (20.5-51.1); MEAN CORPUSCULAR HEMOGLOBIN 31 pg (27-31); MEAN CORPUSCULAR HGB CONC 33 g/dL (33-37); MONOCYTES # (AUTO) 0.7 K/uL (0.8-1.0); NEUTROPHILS # (AUTO) 1.8 K/uL (1.8-7.7); NEUTROPHILS % (AUTO) 45.9 % (42.2-75.2); PLATELET COUNT (AUTO) 126 K/uL (140-450); RED CELL DISTRIBUTION WIDTH 12.8 % (11.6-13.7)
[2022-07-14 07:17] LABS: ANION GAP 11.9 (8-16); CARBON DIOXIDE 26.6 mmol/L (21-32); CHLORIDE 108 mmol/L (98-107); CREATININE 0.8 mg/dL (0.6-1.3); GLUCOSE 131 mg/dL (74-106); POTASSIUM 3.5 mmol/L (3.5-5.1); SODIUM SERUM 143 mmol/L (136-145); UREA NITROGEN, BLOOD 18 mg/dL (7-18)
--- NOTE | 2022-07-14 07:20 | NUR ---
PT IS ON STABLE CONDITION. ALL SAFETY MEASURES ARE IN PLACE. ENDORSED TO DAY SHIFT NURSE.
[2022-07-14 08:00] VITALS: BP 173/65
[2022-07-14] MEDS: carvediloL 6.25 MG TAB PO SCH ×2 (09:04→20:20)
[2022-07-14] MEDS: lisinopriL 5 MG TAB PO SCH (09:05)
[2022-07-14] MEDS ORDERED: MECLIZINE 25 MG TAB PO PRN (09:10)
--- NOTE | 2022-07-14 09:27 | NUR ---
PATIENT HAS BEEN SCREENED AND CATEGORIZED MODERATE NUTRITION RISK. PATIENT WILL BE SEEN WITHIN 3-5 DAYS OF ADMISSION. REVIEWED BY [address]
--- NOTE | 2022-07-14 10:58 | NUR ---
pt daughter called and said that her mom has short time memory loss and her dad did not tell the pharmacies. will pass to the information..[email or web address]
--- NOTE | 2022-07-14 11:15 | NUR ---
DC PLANNING ATTEMPTED TO MEET W/ PT AT BEDSIDE HOWEVER, PT BEING SEEN BY WOMEN SPECIALIST. SW TO FOLLOW
[2022-07-14 12:00] VITALS: BP 107/67
--- NOTE | 2022-07-14 14:37 | NUR ---
DC PLANNIN YRS OLD FEMALE PATIENT WAS ADMITTED FROM HOME WITH A DX OF DIZZINESS. PATIENT HAS A HX OF CHF, DEMENTIA HTN AND HYPOTHYROIDISM. LOW BP ON ARRIVAL 65/31 ADMINISTERED IVF BOLUS BP STABLE 107/67. CONSULTED WITH BARREL RIFLER HOOK. DOROTHY SPOKE WITH PT'S DAUGHTER CELINA [phone] STATED PT IS WITH [employer] AND WANTED TO CONTINUE WITH THEM. DC PLAN TO RETURN HOME WITH [facility]. CM TO FOLLOW Addendum: 07/15/22 at 1138 by Teresa Pimentel RN DC PLANNING: FAXED THE ORDER TO [employer] [phone] . PHONE # [phone] DOROTHY TO FOLLOW
[2022-07-14 16:00] VITALS: BP 137/82
--- NOTE | 2022-07-14 16:17 | NUR ---
P.T. NOTES P.T. EVAL COMPLETED; REFER TO EVAL FOR DETAILS.
[2022-07-14] MEDS: AZITHROMYCIN 500 MG in DEXTROSE 5% 250 ML IV SCH (17:00)
--- NOTE | 2022-07-14 19:10 | NUR ---
RECEIVED PATIENT LYING ON THE BED, WAS ON HER PHONE, PATIENT IS AWAKE, ALERT AND ORIENTED, NO SIGNS OF PAIN/DISCOMFORT NOTED, NO SIGNS OF PAIN NOTED. IV ACCESS SITE ON RIGHT FOREARM, G22, INTACT AND PATENT. CALL LIGHT WITHIN REACH, BED IN LOW AND LOCKED POSITION.
[2022-07-14 20:00] VITALS: BP 114/65
--- NOTE | 2022-07-14 20:20 | NUR ---
SCHEDULED MEDICATION GIVEN ORDERED.
--- NOTE | 2022-07-14 22:00 | NUR ---
ASSISTED PATIENT TO THE RESTROOM, GAIT SLOW AND STEADY, PATIENT DENIES PAIN. ALL SAFETY MEASURES IN PLACE.
[2022-07-15] VITALS: BP 100/71
[2022-07-15 04:00] VITALS: BP 136/71
[2022-07-15] MEDS: MORPHINE SULFATE 2 MG/ML SYR IVP PRN ×2 (04:03→15:09)
--- NOTE | 2022-07-15 04:03 | NUR ---
PATIENT C/O 6/10 PAIN ON LOWER BACK, PRN MORPHINE GIVEN ORDERED, BP 136/71. ALL SAFETY MEASURES IN PLACE, WILL CONTINUE TO MONITOR THE PATIENT.
--- NOTE | 2022-07-15 05:03 | NUR ---
PATIENT IS ASLEEP, NO SIGNS OF PAIN NOTED. CALL LIGHT WITHIN REACH.
[2022-07-15 07:23] LABS: BASOPHILS % (AUTO) 0.3 % (0.0-2.0); EOSINOPHILS # (AUTO) 0.1 K/uL (0-0.4); EOSINOPHILS % (AUTO) 1.8 % (0.0-4.0); HEMATOCRIT 40.4 % (36-48); HEMOGLOBIN 13.4 g/dL (12.0-16.0); LYMPHOCYTES # (AUTO) 1.5 K/uL (2.5-16.5); LYMPHOCYTES % (AUTO) 31.3 % (20.5-51.1); MEAN CORPUSCULAR HEMOGLOBIN 31 pg (27-31); MEAN CORPUSCULAR HGB CONC 33 g/dL (33-37); MEAN CORPUSCULAR VOLUME 92.7 fL (80-94); MONOCYTES # (AUTO) 0.7 K/uL (0.8-1.0); MONOCYTES % (AUTO) 14.6 % (1.7-9.3); NEUTROPHILS # (AUTO) 2.5 K/uL (1.8-7.7); PLATELET COUNT (AUTO) 145 K/uL (140-450); RED BLOOD CELL COUNT(AUTO) 4.35 MIL/uL (4.20-5.40); RED CELL DISTRIBUTION WIDTH 12.8 % (11.6-13.7); WHITE BLOOD COUNT (AUTO) 4.9 K/uL (4.8-10.8)
--- NOTE | 2022-07-15 07:23 | NUR ---
ENDORSED PATIENT TO DAY NURSE FOR CONTINUITY OF CARE. NEEDS MET THROUGHOUT THE SHIFT. PATIENT IN STABLE CONDITION.
--- NOTE | 2022-07-15 07:30 | NUR ---
RECEIVED REPORT FROM NIGHTSHIFT NURSE. PT A/O X4. DENIES PAIN, DENIES DIZZINESS. NO SOB OR RESPIRATORY DISTRESS. ON RA. CARDIAC DIET. RAC #22 SL. NEEDS ALL MET AT THIS TIME. ALL SAFETY MEASURES IN PLACE.
[2022-07-15 08:00] VITALS: BP 175/93
--- NOTE | 2022-07-15 08:02 | NUR ---
AMBULATED PT TO AND FROM RESTROOM. PT DENIES DIZZINESS, PAIN. PT TOLERATED WELL. ALL SAFETY MEASURES IN PLACE.
[2022-07-15 08:04] LABS: ANION GAP 12.9 (8-16); CARBON DIOXIDE 26.2 mmol/L (21-32); CHLORIDE 106 mmol/L (98-107); CREATININE 0.8 mg/dL (0.6-1.3); GLUCOSE 101 mg/dL (74-106); POTASSIUM 3.1 mmol/L (3.5-5.1); SODIUM SERUM 142 mmol/L (136-145); UREA NITROGEN, BLOOD 12 mg/dL (7-18)
[2022-07-15] MEDS: carvediloL 6.25 MG TAB PO SCH (08:45)
[2022-07-15] MEDS: lisinopriL 5 MG TAB PO SCH (08:45)
[2022-07-15] MEDS ORDERED: NON-FORMULARY ITEM (Venlafaxine HCl* (Effexor Xr*) 1 CAP) PO SCH (09:00)
[2022-07-15] MEDS ORDERED: THYROID PORK 60 MG PO SCH (09:00)
[2022-07-15] MEDS ORDERED: THYROID 60 MG TAB PO SCH (09:00)
[2022-07-15] MEDS ORDERED: AZIT250T4 PO (10:32)
[2022-07-15 11:15] VITALS: BP 131/80
--- NOTE | 2022-07-15 11:30 | NUR ---
SPOKE WITH PT'S DAUGHTER, DOUGLAS AND EXPLAINED PT IS PLANNED FOR DISCHARGE. DOUGLAS STATES SHE WANTS HOME HEALTH AND PHYSICAL THERAPY SET UP FOR PT. EXPLAINED TO DOUGLAS THAT WILL CONTACT MD. CONTACTED MD AND MD ORDER FOR HH/PT. WILL FOLLOW-UP WITH PT'S DAUGHTER.
[2022-07-15] MEDS ORDERED: predniSONE 20 MG TAB PO SCH (11:55)
[2022-07-15 12:00] VITALS: BP 142/87
[2022-07-15] MEDS ORDERED: ALBUTEROL SULFATE/IPRATROPIU 3 ML SOL IH SCH (13:00)
--- NOTE | 2022-07-15 13:32 | NUR ---
Pt given PRN Albuterol treatment with HHN at 0934 due to wheezing and per patient request.
--- NOTE | 2022-07-15 15:30 | NUR ---
POC DISCUSSED WITH PT'S DAUGHTER, DOUGLAS AND SHE VERBALIZED UNDERSTANDING. ESTIMATED PICKUP AT 1700 BY PT'S .
[2022-07-15] MEDS: AZITHROMYCIN 500 MG in DEXTROSE 5% 250 ML IV SCH (16:34)
--- NOTE | 2022-07-15 17:20 | NUR ---
IV DISCONTINUED, CATHETER INTACT, NO ACTIVE BLEEDING. DISCHARGE INSTRUCTIONS GIVEN, PT VERBALIZED UNDERSTANDING. PT WHEELED OUT VIA WHEELCHAIR BY JANET BARCLAY.
[2022-07-16] MEDS ORDERED: VENLAFAXINE XR 75 MG CAPER PO SCH (09:00)
== END 2022-07-15 17:44 | disposition home health service (06) | DRG 73 ==
LOC: MED 14:21 → MTU 18:11
PROVIDERS: ADMIT Family Medicine; ATTEND Family Medicine
DX: G90.8 Other disorders of autonomic nervous system (principal); J18.9 Pneumonia, unspecified organism; J96.00 Acute respiratory failure, unspecified whether with hypoxia or hypercapnia; E86.0 Dehydration; I95.1 Orthostatic hypotension; E83.51 Hypocalcemia; M85.80 Other specified disorders of bone density and structure, unspecified site; J01.90 Acute sinusitis, unspecified; R73.9 Hyperglycemia, unspecified; M47.812 Spondylosis without myelopathy or radiculopathy, cervical region; S09.90XA Unspecified injury of head, initial encounter; I50.9 Heart failure, unspecified; E03.9 Hypothyroidism, unspecified; Z20.822 Contact with and (suspected) exposure to COVID-19; I11.0 Hypertensive heart disease with heart failure; I65.23 Occlusion and stenosis of bilateral carotid arteries; G31.9 Degenerative disease of nervous system, unspecified; S10.91XA Abrasion of unspecified part of neck, initial encounter; S00.81XA Abrasion of other part of head, initial encounter; X58.XXXA Exposure to other specified factors, initial encounter; Y93.89 Activity, other specified; Z90.49 Acquired absence of other specified parts of digestive tract; Y92.89 Other specified places as the place of occurrence of the external cause; Y99.8 Other external cause status
CPT/HCPCS: 36415; 70450; 71045; 72125; 80048; 80053; 81003; 83605; 83735; 83880; 84443; 84484; 85025; 87040; 87081; 87086; 93005; 93880; 94640; 96361; 96365; 96368; 97112; 97116; 99285; J0456; J0696; J2270; J7060; J7512; Q0092

== ENCOUNTER 2022-08-14 10:42 | Inpatient (IN) | payer OTHER, BC ==
[~2022-08-14] VITALS: Ht 152.4 cm; Wt 54.9 kg
[~2022-08-14 10:42] MED LIST changes: +AZIT250T4 PO; -CEPH-588 PO
[2022-08-14 10:46] VITALS: BP 166/101
--- NOTE | 2022-08-14 10:50 | NUR ---
pt biba draw sheeted to bed
--- NOTE | 2022-08-14 10:52 | NUR ---
77/F BIBA FROM HOME. PER EMS PATIENT CALLED 911 C/O ABDOMINAL PAIN AND N/V SINCE LAST NIGHT S/P EATING CHICKEN AND RICE. PATIENT DENIES TAKING MEDS FOR S/S, STATES NO ONE AT HOME SICK WITH SAME S/S. PATIENT PLACED IN GOWN ON BEDSIDE LOT ASSOCIATE, DENIES DIARRHEA, CP, SOB, DR. GARBER AWARE OF PATIENT STATUS ON ARRIVAL.
[2022-08-14] MEDS ORDERED: NACL 0.9% 1,000 ML IV ONE (11:15)
[2022-08-14] MEDS ORDERED: ONDANSETRON 4 MG/2 ML VIAL IVP ONE (11:15)
[2022-08-14] MEDS ORDERED: MORPHINE SULFATE 4 MG/ML SYR IVP ONE (11:15)
[2022-08-14 11:21] LABS: BASOPHILS % (AUTO) 0.6 % (0.0-2.0); EOSINOPHILS % (AUTO) 0.2 % (0.0-4.0); HEMOGLOBIN 15.7 g/dL (12.0-16.0); LYMPHOCYTES # (AUTO) 1.1 K/uL (2.5-16.5); LYMPHOCYTES % (AUTO) 16.1 % (20.5-51.1); MEAN CORPUSCULAR HEMOGLOBIN 31 pg (27-31); MEAN CORPUSCULAR HGB CONC 34 g/dL (33-37); MEAN CORPUSCULAR VOLUME 91.8 fL (80-94); MONOCYTES # (AUTO) 0.8 K/uL (0.8-1.0); MONOCYTES % (AUTO) 11.8 % (1.7-9.3); NEUTROPHILS % (AUTO) 71.3 % (42.2-75.2); PLATELET COUNT (AUTO) 239 K/uL (140-450); RED BLOOD CELL COUNT(AUTO) 5.01 MIL/uL (4.20-5.40); RED CELL DISTRIBUTION WIDTH 13.4 % (11.6-13.7); WHITE BLOOD COUNT (AUTO) 7.1 K/uL (4.8-10.8)
[2022-08-14 11:39] LABS: ALBUMIN 4.4 g/dL (3.4-5.0); ASPARTATE AMINOTRANSFERASE 6 U/L (15-37); CARBON DIOXIDE 28.3 mmol/L (21-32); CHLORIDE 100 mmol/L (98-107); CREATININE 0.9 mg/dL (0.6-1.3); GLUCOSE 132 mg/dL (74-106); LIPASE 241 U/L (73-393); POTASSIUM 3.3 mmol/L (3.5-5.1); SODIUM SERUM 138 mmol/L (136-145); TOTAL BILIRUBIN 0.7 mg/dL (0.0-1.0); UREA NITROGEN, BLOOD 23 mg/dL (7-18)
[2022-08-14 11:41] LABS: APPEARANCE,URINE CLEAR (CLEAR); BILIRUBIN,URINE NEGATIVE (NEGATIVE); BLOOD, URINE TRACE-I (NEGATIVE); COLOR,URINE YELLOW (YELLOW); LEUKOCYTE ESTERASE ,URINE TRACE (NEGATIVE); NITRITE, URINE NEGATIVE (NEGATIVE); PH,URINE 6.5 (5.0-9.0); UGLUCOSE NEGATIVE (NEGATIVE)
--- NOTE | 2022-08-14 11:58 | NUR ---
PT TAKEN TO CT VIA TRACE
--- NOTE | 2022-08-14 12:08 | NUR ---
PT BROUGHT BACK VIA TRACE
[2022-08-14 12:35] LABS: RBC,URINE 0-5 /HPF (0-5); WBC,URINE 0-5 /HPF (0-5)
[2022-08-14] MEDS ORDERED: KETOROLAC 15 MG/ML VIAL IVP ONE (13:10)
--- NOTE | 2022-08-14 13:25 | NUR ---
pt swabbed for covid(radha). walked and handed to lab
[2022-08-14] MEDS ORDERED: LISI2.5T14 PO (13:34)
[2022-08-14] MEDS ORDERED: ACET-9529 PO (13:34)
[2022-08-14] MEDS ORDERED: CARV6.252 PO (13:34)
[2022-08-14] MEDS ORDERED: VENL75TA4 PO (13:34)
[2022-08-14] MEDS ORDERED: ACETAMINOPHEN EXTRA STRENGTH 500 MG TAB PO PRN (13:55)
--- NOTE | 2022-08-14 14:36 | NUR ---
ORDER RECEIVED FROM MD DAMON. ORDERS ENTERED AND CARRIED OUT. ZOFRAN 4MG ODT PRN Q8H
[2022-08-14] MEDS ORDERED: ONDANSETRON 4 MG ODT PO ONE (14:40)
[2022-08-14] MEDS ORDERED: traMADol 50 MG TAB PO ONE (16:00)
[2022-08-14] MEDS ORDERED: carvediloL 6.25 MG TAB PO ONE (16:00)
[2022-08-14] MEDS ORDERED: lisinopriL 20 MG TAB PO ONE ×2 (16:00→16:05)
[2022-08-14] MEDS ORDERED: lisinopriL 5 MG TAB ONE (16:18)
[2022-08-14] MEDS ORDERED: CRUSHER, PILL MC ONE (16:19)
[2022-08-14] MEDS ORDERED: lisinopriL 5 MG TAB PO SCH (16:20)
--- NOTE | 2022-08-14 18:31 | NUR ---
pt c/o new 02/12 pain. MD DAMON CONTACTED VIA HOSPITAL PHONE/TEXT
--- NOTE | 2022-08-14 18:31 | NUR ---
pt offered tylenol. pt refused.
--- NOTE | 2022-08-14 19:18 | NUR ---
MD DAMON CONTACTED VIA HOSPITAL PHONE/TEXT AND NOTIFIED OF PT UPDATED VITALS.
--- NOTE | 2022-08-14 19:37 | NUR ---
REPORT GIVEN TO KAYCEE BRADLEY. TRANSFER OF CARE AT THIS TIME
[2022-08-14] MEDS ORDERED: hydrALAZINE 20 MG/ML VIAL IVP ONE (19:40)
--- NOTE | 2022-08-14 19:40 | NUR ---
ORDER RECEIVED FROM MD DAMON. ORDERED ENTERED AND TO BE CARRIED OUT HYDRALAZINE 10MG IVP Q6HR BP >160 SYSTOLIC
--- NOTE | 2022-08-14 20:00 | NUR ---
pt went to restroom with help of Rn.
[2022-08-14] MEDS ORDERED: hydrALAZINE 20 MG/ML VIAL IVP PRN (20:20)
[2022-08-14] MEDS ORDERED: MORPHINE SULFATE 2 MG/ML SYR IVP PRN (20:20)
--- NOTE | 2022-08-14 22:20 | NUR ---
Patient will be admitted to care of renal cyst. Admited to [facility]. Will go to room 126A. Belongings list completed. Report to estefani.
[2022-08-14 22:30] VITALS: BP 147/88
[2022-08-14] MEDS: ONDANSETRON 4 MG/2 ML VIAL IVP PRN (23:12)
[2022-08-14] MEDS: MORPHINE SULFATE 4 MG/ML SYR IVP PRN (23:12)
--- NOTE | 2022-08-14 23:12 | NUR ---
RECEIVED PATIENT FROM ED AT 2224 VIA WHEELCHAIR. PATIENT COMPLAINING OF BACK PAIN AT 9/10 AND ABDOMINAL PAIN AT 8/10. A/O X4 VSS. AFEBRILE. RESPIRATIONS EVEN AND UNLABORED. PATIENT IS VERY ANXIOUS. DR. COOPER CALLED AND NOTIFIED OF PATIENTS ANXIETY AND COMPLAINTS OF PAIN AND NAUSEA. ORDERS GIVEN AND CARRIED OUT. WILL CONTINUE TO MONITOR FOR SAFETY. Mauri MCCRAY RN.
[2022-08-14] MEDS: LORazepam 2 MG/ML VIAL IVP PRN (23:40)
[2022-08-15 04:22] VITALS: BP 170/93
[2022-08-15] MEDS: MORPHINE SULFATE 4 MG/ML SYR IVP PRN ×2 (04:55→21:14)
[2022-08-15] MEDS: ONDANSETRON 4 MG/2 ML VIAL IVP PRN ×2 (04:55→21:14)
[2022-08-15 05:25] VITALS: BP 110/54
--- NOTE | 2022-08-15 07:47 | NUR ---
NURSES NOTE PATIENT RECEIVED AT BED SIDE , A/OX4 , VSS , PT MED SURGE , ON ROOM AIR , NPO AMBULATORY , CONTINENT X2, ON IV FLUID N/S 0.9% 80CC/H , SKIN INTACT , SAFETY PROACTION ON PLACE , SIDE RAILS UP X3 BED IN LOWER POSITION , CALL LIGHT WITHIN REACH , NO COMPLAIN AT THIS TIME , STILL UNDER OBSERVE .
[2022-08-15 08:43] VITALS: BP 89/51
--- NOTE | 2022-08-15 09:00 | NUR ---
nurses noite PATIENT HAS BP LOW DR INFORMED AND K LOW, GIVE ORDER TO START N/S 0.9% 50CC /H AND GIVE POTASSIUM 20MEG PO ONCE , DR PLACE DR REQUEST .
[2022-08-15] MEDS ORDERED: HYDROcodone/APAP 7.5/325 MG 1 TAB PO PRN (09:20)
[2022-08-15] MEDS ORDERED: ONDANSETRON 4 MG/2 ML VIAL IVP PRN (09:20)
[2022-08-15] MEDS ORDERED: ACETAMINOPHEN 325 MG TAB PO PRN (09:20)
[2022-08-15] MEDS ORDERED: NACL 0.9% 1,000 ML IV SCH (09:20)
[2022-08-15] MEDS ORDERED: MAG SULF 2000 MG/WATER PREMIX 50 ML IV PRN (09:20)
--- NOTE | 2022-08-15 09:23 | NUR ---
PATIENT HAS BEEN SCREENED AND CATEGORIZED MODERATE NUTRITION RISK. PATIENT WILL BE SEEN WITHIN 3-5 DAYS OF ADMISSION. REVIEWED BY [address]
[2022-08-15] MEDS ORDERED: POTASSIUM CHLORIDE 10 MEQ TABER PO SCH (09:30)
[2022-08-15] MEDS: NACL 0.9% 1,000 ML IV SCH (09:35)
[2022-08-15 10:20] LABS: BASOPHILS % (AUTO) 0.4 % (0.0-2.0); EOSINOPHILS % (AUTO) 0.2 % (0.0-4.0); HEMATOCRIT 43.4 % (36-48); HEMOGLOBIN 14.5 g/dL (12.0-16.0); LYMPHOCYTES # (AUTO) 1.2 K/uL (2.5-16.5); LYMPHOCYTES % (AUTO) 13.9 % (20.5-51.1); MEAN CORPUSCULAR HEMOGLOBIN 31 pg (27-31); MEAN CORPUSCULAR HGB CONC 33 g/dL (33-37); MONOCYTES # (AUTO) 1.5 K/uL (0.8-1.0); MONOCYTES % (AUTO) 17.3 % (1.7-9.3); NEUTROPHILS # (AUTO) 5.9 K/uL (1.8-7.7); NEUTROPHILS % (AUTO) 68.2 % (42.2-75.2); PLATELET COUNT (AUTO) 253 K/uL (140-450); RED BLOOD CELL COUNT(AUTO) 4.72 MIL/uL (4.20-5.40); RED CELL DISTRIBUTION WIDTH 13.4 % (11.6-13.7); WHITE BLOOD COUNT (AUTO) 8.7 K/uL (4.8-10.8)
[2022-08-15 10:29] LABS: ANION GAP 13.1 (8-16); CARBON DIOXIDE 28.3 mmol/L (21-32); CHLORIDE 101 mmol/L (98-107); CREATININE 1.2 mg/dL (0.6-1.3); GLUCOSE 119 mg/dL (74-106); POTASSIUM 3.4 mmol/L (3.5-5.1); SODIUM SERUM 139 mmol/L (136-145); UREA NITROGEN, BLOOD 27 mg/dL (7-18)
[2022-08-15 10:31] LABS: PROTHROMBIN TIME 11.9 secs (10.8-13.4)
[2022-08-15 10:41] LABS: CHOL/HDL RATIO 2.7 (1-4.5); FREE T4 (FREE THYROXINE) 0.87 ng/dL (0.76-1.46); MAGNESIUM 2.2 mg/dL (1.8-2.4); PHOSPHORUS 4.5 mg/dL (2.5-4.9); THYROID STIMULATING HORMONE 3.78 uIU/mL (0.34-3.74)
--- NOTE | 2022-08-15 12:14 | NUR ---
NURSES NOTE PATIENT A/OX4 , VS TAKEN , ON IV FLUID N/S 0.9% 50CC/H , NO COMPLAIN AT THIS TIME STILL NPO , FOR OBSERVE .
[2022-08-15 12:26] VITALS: BP 108/60
[2022-08-15 12:51] LABS: BARBITURATE, URINE NEGATIVE ng/ml (NEG <=200); BENZODIAZEPINE, URINE POS ng/mL (NEG <=200); CANNABINOID, URINE NEGATIVE ng/mL (NEG <=50); COCAINE, URINE NEGATIVE ng/mL (NEG <=300); OPIATE, URINE POS ng/mL (NEG <=2000); PHENCYCLIDINE SCREEN,URINE NEGATIVE ng/mL (NEG <=25)
--- NOTE | 2022-08-15 13:00 | NUR ---
DC PLANNING ASSESSMENT COMPLETE PLEASE REFER TO ASSESSMENT FOR ADDITIONAL DETAILS PT IS A 77 YR OLD FEMALE ADMITTED TO [facility] FROM HOME WITH DX OF RENAL CYST AND NAUSEA. PT HAS PAST MEDICAL HX OF HYPOTHYROIDISM AND LOW BLOOD PRESSURE PT REPORTS UTILIZING FWW, BC, BSC AND REPORTS REQUIRING MINIMAL ASSISTANCE WITH ADL'S THE HER AIDS WITH. PT REPORTS RECEIVING HOME HEALTH PT 2X WEEKLY, HOWEVER, PT STRUGGLED TO RECALL NAME OF HH AGENCY. PT REPORTS RESIDING IN A SINGLE STORY HOME WITH HER , AT THE ADDRESS LISTED ON FILE. PT REPORTS DC PLAN IS TO RETURN HOME WITH HER PROVIDING TRANSPORTATION, WHEN MEDICALLY STABLE. Addendum: 08/16/22 at 0851 by Keyla BRAGA Amended: Links added. Addendum: 08/17/22 at 1023 by Keyla Varela SS fielded call from pts daughter Zulma Rodriguez. Zulma is requesting that although mother is alert and oriented, she is requesting plan of care be discussed with her and/or pts . Zulma reports pt struggles to recall information provided to her and struggles to provide family with details discussed with her. Zulma reports she and pt's do have POA. Zulma reports her father will bring in copy to add to pts chart. Opal requesting Home Health be arranged with Kait[facility]. Zulma requesting updated POC and was transferred to
[2022-08-15 16:25] VITALS: BP 95/55
--- NOTE | 2022-08-15 16:42 | NUR ---
UPDATE ON PATIENT PATIENT STILL NPO , SEEN BY GI [facility] THEY REQUEST MRCP FOR HER NURSES NOTE PATIENT RECEIVED AT BED SIDE , A/OX4 , VSS , PT MED SURGE , ON ROOM AIR , NPO AMBULATORY , LOWER EXTREMITY WEAKNESS , CONTINENT X2, ON IV FLUID N/S 0.9% 50CC/H , SKIN INTACT , SAFETY PROACTION ON PLACE , SIDE RAILS UP X3 BED IN LOWER POSITION , CALL LIGHT WITHIN REACH , NO COMPLAIN AT THIS TIME , STILL UNDER OBSERVE .
--- NOTE | 2022-08-15 19:22 | NUR ---
REPORT GIVEN TO AMIRAH BRADLEY ALL HER QUESTION ANSWER
[2022-08-15 20:00] VITALS: BP 132/78
[2022-08-15] MEDS: DOCUSATE SODIUM 100 MG GELCAP PO SCH (20:50)
[2022-08-16] VITALS: BP 156/79
[2022-08-16] MEDS: LORazepam 2 MG/ML VIAL IVP PRN (00:58)
[2022-08-16] MEDS: MORPHINE SULFATE 4 MG/ML SYR IVP PRN ×3 (01:21→12:38)
[2022-08-16] MEDS: NACL 0.9% 1,000 ML IV SCH (01:21)
[2022-08-16] MEDS: ONDANSETRON 4 MG/2 ML VIAL IVP PRN (01:21)
[2022-08-16 04:00] VITALS: BP 102/56
[2022-08-16 05:47] LABS: BASOPHILS % (AUTO) 0.3 % (0.0-2.0); EOSINOPHILS % (AUTO) 0.7 % (0.0-4.0); HEMATOCRIT 39.5 % (36-48); LYMPHOCYTES # (AUTO) 1.2 K/uL (2.5-16.5); LYMPHOCYTES % (AUTO) 17.8 % (20.5-51.1); MEAN CORPUSCULAR HEMOGLOBIN 31 pg (27-31); MEAN CORPUSCULAR HGB CONC 33 g/dL (33-37); MEAN CORPUSCULAR VOLUME 92.8 fL (80-94); MONOCYTES # (AUTO) 0.7 K/uL (0.8-1.0); MONOCYTES % (AUTO) 9.8 % (1.7-9.3); NEUTROPHILS # (AUTO) 4.9 K/uL (1.8-7.7); NEUTROPHILS % (AUTO) 71.4 % (42.2-75.2); PLATELET COUNT (AUTO) 222 K/uL (140-450); RED BLOOD CELL COUNT(AUTO) 4.25 MIL/uL (4.20-5.40); RED CELL DISTRIBUTION WIDTH 13.3 % (11.6-13.7); WHITE BLOOD COUNT (AUTO) 6.8 K/uL (4.8-10.8)
[2022-08-16] MEDS ORDERED: POTASSIUM CHLORIDE 10 MEQ TABER PO PRN (06:00)
[2022-08-16 06:05] LABS: ANION GAP 13.3 (8-16); CARBON DIOXIDE 24.4 mmol/L (21-32); CHLORIDE 102 mmol/L (98-107); CREATININE 1.3 mg/dL (0.6-1.3); GLUCOSE 101 mg/dL (74-106); POTASSIUM 3.7 mmol/L (3.5-5.1); SODIUM SERUM 136 mmol/L (136-145); UREA NITROGEN, BLOOD 31 mg/dL (7-18)
[2022-08-16 06:23] LABS: PHOSPHORUS 4.7 mg/dL (2.5-4.9)
[2022-08-16 08:00] VITALS: BP 158/79
[2022-08-16] MEDS: PANTOPRAZOLE 40 MG INJ VIAL IVP SCH (08:06)
[2022-08-16] MEDS: DOCUSATE SODIUM 100 MG GELCAP PO SCH ×2 (08:07→21:13)
[2022-08-16] MEDS: carvediloL 6.25 MG TAB PO SCH (08:08)
[2022-08-16] MEDS: VENLAFAXINE 37.5 MG TAB PO SCH (08:08)
[2022-08-16] MEDS: lisinopriL 5 MG TAB PO SCH (08:08)
[2022-08-16] MEDS ORDERED: NON-FORMULARY ITEM (Lisinopril 1 TAB) PO SCH (09:00)
[2022-08-16] MEDS ORDERED: THYROID PORK 60 MG PO SCH (09:00)
[2022-08-16] MEDS ORDERED: VENLAFAXINE HCL PO SCH (09:00)
[2022-08-16 12:00] VITALS: BP 112/64
[2022-08-16 16:00] VITALS: BP 134/72
--- NOTE | 2022-08-16 19:56 | NUR ---
RECEIVED PATIENT IN BED WELL RESTED. NO DISTRESS NOTED ON ROOM AIR. DENIES PAIN. IVF NS INFUSING 50 ML/HR IN THE RIGHT HAND. CALL LIGHT WITHIN REACH. SAFETY MEASURES ARE IN PLACE. ASSISTED PATIENT TO RESTROOM AND BACK TO BED.
[2022-08-16 20:00] VITALS: BP 88/49
--- NOTE | 2022-08-16 21:12 | NUR ---
SCHEDULED MEDICATIONS DUE GIVEN.
[2022-08-17] VITALS: BP 97/58
[2022-08-17] MEDS: NACL 0.9% 1,000 ML IV SCH ×2 (01:05→21:05)
[2022-08-17 04:00] VITALS: BP 132/69
[2022-08-17 05:36] LABS: BASOPHILS % (AUTO) 0.6 % (0.0-2.0); EOSINOPHILS # (AUTO) 0.4 K/uL (0-0.4); EOSINOPHILS % (AUTO) 5.7 % (0.0-4.0); HEMOGLOBIN 12.7 g/dL (12.0-16.0); LYMPHOCYTES # (AUTO) 1.9 K/uL (2.5-16.5); LYMPHOCYTES % (AUTO) 30.4 % (20.5-51.1); MEAN CORPUSCULAR HEMOGLOBIN 31 pg (27-31); MEAN CORPUSCULAR HGB CONC 34 g/dL (33-37); MEAN CORPUSCULAR VOLUME 91.8 fL (80-94); MONOCYTES # (AUTO) 0.7 K/uL (0.8-1.0); MONOCYTES % (AUTO) 11.4 % (1.7-9.3); NEUTROPHILS # (AUTO) 3.3 K/uL (1.8-7.7); NEUTROPHILS % (AUTO) 51.9 % (42.2-75.2); PLATELET COUNT (AUTO) 209 K/uL (140-450); RED BLOOD CELL COUNT(AUTO) 4.13 MIL/uL (4.20-5.40); RED CELL DISTRIBUTION WIDTH 13.4 % (11.6-13.7); WHITE BLOOD COUNT (AUTO) 6.3 K/uL (4.8-10.8)
[2022-08-17 06:10] LABS: ANION GAP 9.9 (8-16); CARBON DIOXIDE 27.1 mmol/L (21-32); CHLORIDE 102 mmol/L (98-107); GLUCOSE 100 mg/dL (74-106); SODIUM SERUM 135 mmol/L (136-145); UREA NITROGEN, BLOOD 30 mg/dL (7-18)
[2022-08-17 06:18] LABS: MAGNESIUM 1.7 mg/dL (1.8-2.4); PHOSPHORUS 3.5 mg/dL (2.5-4.9)
--- NOTE | 2022-08-17 07:26 | NUR ---
GAVE REPORT TO DAY SHIFT NURSE FOR CONTINUITY OF CARE. PATIENT STABLE.
[2022-08-17 08:00] VITALS: BP 119/68
[2022-08-17] MEDS: PANTOPRAZOLE 40 MG INJ VIAL IVP SCH (08:28)
[2022-08-17] MEDS: carvediloL 6.25 MG TAB PO SCH (08:29)
[2022-08-17] MEDS: VENLAFAXINE 37.5 MG TAB PO SCH (08:29)
[2022-08-17] MEDS: DOCUSATE SODIUM 100 MG GELCAP PO SCH ×2 (08:29→21:25)
[2022-08-17] MEDS: lisinopriL 5 MG TAB PO SCH (08:30)
[2022-08-17] MEDS ORDERED: OXYC5TAB4 PO (11:38)
[2022-08-17] MEDS ORDERED: ACTI300 PO (11:38)
[2022-08-17 12:00] VITALS: BP 142/78
[2022-08-17] MEDS: ARMOUR THYROID 60 MG PO SCH (13:38)
--- NOTE | 2022-08-17 15:56 | NUR ---
Dr. Palacios gave order to DC pt. home. While explaining pt. regarding DC order, pt. refused to go home and verbalized that she doesn't feel well and she is very dizzy. Dr. Palacios made aware. verbalized that pt. can appeal. DOROTHY made aware. Mandy/DOROTHY stated that she will call the family.
[2022-08-17 16:00] VITALS: BP 138/70
[2022-08-17] MEDS: MORPHINE SULFATE 4 MG/ML SYR IVP PRN (18:39)
--- NOTE | 2022-08-17 19:20 | NUR ---
RECEIVED REPORT FROM KIRK PINEDA FOR CONTINUITY OF CARE. PT AWAKE IN BED. ON RA, STTING AT 97%. NO DISTRESS NOTED. AMBULATES WITH ASSIST FOR SAFETY. SKIN INTACT, WARM AND DRY TO TOUCH. PT WITH D/C ORDER BUT EXTENDED STAY FOR 1 MORE NIGHT DUE TO DIZZINESS. IV SITE ON LEFT HAND 24G INFUSING IVF. INITIAL ASSESSMENT DONE. POC DISCUSSED WITH PT AND KIRK NICK. PT RE-ORIENTED TO USE OF CALL LIGHT AND PLACED WITHIN REACH. SAFETY PRECAUTIONS IN PLACE.
[2022-08-17 20:00] VITALS: BP 143/73
--- NOTE | 2022-08-17 20:00 | NUR ---
Patient's Plan of Care was discussed and reviewed with TIMOTHY SIERRA
[2022-08-17] MEDS ORDERED: CALCIUM CARBONATE 500 MG TAB.CHEW PO SCH (21:20)
--- NOTE | 2022-08-17 21:41 | NUR ---
ADMINISTERED DUE MEDS. PT COMPLAINING OF ACID REFLUX. ORDER RECEIVED AND CARRIED OUT.
--- NOTE | 2022-08-17 22:00 | NUR ---
ADMINISTERED MAGNESIUM TO PATIENT FOR COVERAGE. MAGNESIUM WAS 1.7; PATIENT HAD PRN ORDER FOR MAG BELOW 1.8. INFORMED CORPORATE ASSOCIATE MITCHELLSAJeane OF ADMINISTRATION
--- NOTE | 2022-08-18 05:35 | NUR ---
DID ROUNDS. PT IN BED, AWAKE. ASSISTED PT 6X TO THE REST ROOM TO URINATE. NO SOB, DIZZINESS. NO DISTRESS NOTED. PT REMAINED SAFE THROUGHOUT THE NIGHT.
[2022-08-18 05:40] LABS: BASOPHILS % (AUTO) 0.4 % (0.0-2.0); EOSINOPHILS # (AUTO) 0.3 K/uL (0-0.4); EOSINOPHILS % (AUTO) 6.2 % (0.0-4.0); HEMOGLOBIN 12.1 g/dL (12.0-16.0); LYMPHOCYTES # (AUTO) 1.7 K/uL (2.5-16.5); LYMPHOCYTES % (AUTO) 32.1 % (20.5-51.1); MEAN CORPUSCULAR HEMOGLOBIN 31 pg (27-31); MEAN CORPUSCULAR HGB CONC 34 g/dL (33-37); MEAN CORPUSCULAR VOLUME 90.7 fL (80-94); MONOCYTES # (AUTO) 0.8 K/uL (0.8-1.0); MONOCYTES % (AUTO) 14.5 % (1.7-9.3); NEUTROPHILS # (AUTO) 2.5 K/uL (1.8-7.7); NEUTROPHILS % (AUTO) 46.8 % (42.2-75.2); PLATELET COUNT (AUTO) 191 K/uL (140-450); RED BLOOD CELL COUNT(AUTO) 3.97 MIL/uL (4.20-5.40); RED CELL DISTRIBUTION WIDTH 13.4 % (11.6-13.7); WHITE BLOOD COUNT (AUTO) 5.3 K/uL (4.8-10.8)
[2022-08-18 06:24] LABS: ANION GAP 8.9 (8-16); CARBON DIOXIDE 27.7 mmol/L (21-32); CHLORIDE 103 mmol/L (98-107); CREATININE 0.8 mg/dL (0.6-1.3); GLUCOSE 99 mg/dL (74-106); POTASSIUM 3.6 mmol/L (3.5-5.1); SODIUM SERUM 136 mmol/L (136-145); UREA NITROGEN, BLOOD 22 mg/dL (7-18)
[2022-08-18 06:27] LABS: MAGNESIUM 2.1 mg/dL (1.8-2.4); PHOSPHORUS 2.8 mg/dL (2.5-4.9)
[2022-08-18] MEDS: MORPHINE SULFATE 4 MG/ML SYR IVP PRN (06:31)
--- NOTE | 2022-08-18 06:38 | NUR ---
PATIENT CALLED AND REQUESTED MORPHINE FOR PAIN. CHECKED PATIENT'S VITALS AND CHART; MORPHINE WAS APPROPRIATE TO ADMINISTER. INFORMED DRINK BOX MECHANICJeane SIERRA THAT PATIENT WAS REQUESTING THIS MEDICATION. ADMINISTERED MEDICATION TO PATIENT; MEDICATION ADMINISTRATION WAS SUCCESSFUL WITH NO ISSUES. INFORMED DRINK BOX MECHANICJeane SIERRA OF ADMINISTRATION. PATIENT'S BREATHING IS NORMAL WITH SYMMETRICAL RISE AND FALL OF CHEST.
--- NOTE | 2022-08-18 07:29 | NUR ---
GAVE BEDSIDE REPORT TO TIMOTHY LAKHANI FOR CONTINUITY OF CARE. PT IS STABLE.
--- NOTE | 2022-08-18 07:30 | NUR ---
RECEIVED PT FROM ELECTRIC MOTOR TESTER ASSEMBLER NURSE FOR CONTINUITY OF CARE. PT STABLE.
[2022-08-18 08:00] VITALS: BP 153/70
[2022-08-18] MEDS ORDERED: PANTOPRAZOLE 40 MG TABEC PO SCH (09:00)
[2022-08-18] MEDS: DOCUSATE SODIUM 100 MG GELCAP PO SCH (09:45)
[2022-08-18] MEDS: lisinopriL 5 MG TAB PO SCH (09:45)
[2022-08-18] MEDS: VENLAFAXINE 37.5 MG TAB PO SCH (09:46)
[2022-08-18] MEDS: carvediloL 6.25 MG TAB PO SCH (09:46)
[2022-08-18] MEDS: ARMOUR THYROID 60 MG PO SCH (09:53)
[2022-08-18] MEDS: PANTOPRAZOLE 40 MG INJ VIAL IVP SCH (10:55)
[2022-08-18] MEDS ORDERED: MORPHINE SULFATE 2 MG/ML SYR IVP PRN (12:20)
[2022-08-18 15:38] VITALS: BP 153/70
--- NOTE | 2022-08-18 16:11 | NUR ---
REVIEWED DC PACKET WITH PT. NAME BAND AND IV REMOVED. PT GATHERED BELONGINGS AND WAS TAKEN VIA WHEELCHAIR TO FRONT LOBBY. SPOUSE WAITING IN VEHICLE. PT GOT IN VEHICLE SAFELY. PT IN STABLE CONDITION. DC TO HOME.
== END 2022-08-18 16:12 | disposition home or self-care (01) | DRG 445 ==
LOC: MED 10:42 → MMU 19:52 → MED 21:39 → MMU 21:43
PROVIDERS: ADMIT Family Medicine; ATTEND Family Medicine
DX: K83.8 Other specified diseases of biliary tract (principal); E87.1 Hypo-osmolality and hyponatremia; E87.6 Hypokalemia; N28.1 Cyst of kidney, acquired; E03.9 Hypothyroidism, unspecified; M85.80 Other specified disorders of bone density and structure, unspecified site; I10 Essential (primary) hypertension; Z20.822 Contact with and (suspected) exposure to COVID-19; I70.90 Unspecified atherosclerosis; K86.89 Other specified diseases of pancreas; K83.4 Spasm of sphincter of Oddi; Z90.49 Acquired absence of other specified parts of digestive tract; Z79.891 Long term (current) use of opiate analgesic; Z79.899 Other long term (current) drug therapy; Z90.710 Acquired absence of both cervix and uterus
CPT/HCPCS: 36415; 71045; 80048; 80053; 80305; 81001; 82140; 82150; 83036; 83605; 83690; 83735; 83880; 84100; 84439; 84443; 84484; 85025; 85610; 85730; 87081; 93005; 96361; 96374; 96375; 99285; C9113; J0360; J1644; J1885; J2060; J2270; J2405; J3475; Q0092; Q0162; Q9967

== ENCOUNTER 2023-01-24 17:30 | Inpatient (IN) | payer OTHER, BC ==
[~2023-01-24] VITALS: Ht 162.6 cm; Wt 56.7 kg
[~2023-01-24 17:30] MED LIST changes: +ACET-9529 PO; +ACTI300 PO; -AZIT250T4 PO; -CALC-1646 PO; +CARV6.252 PO; +LISI2.5T14 PO; -LISI5TAB18 PO; +OXYC5TAB4 PO; -VENL37.55 PO; +VENL75TA4 PO
[2023-01-24] MEDS ORDERED: HYDROcodone/APAP 10/325 MG 1 TAB TAB PO ONE (17:50)
[2023-01-24 17:57] VITALS: BP 143/80; PULSE 70; RESP 17; TEMP 97.4; O2SAT 97
[2023-01-24] MEDS ORDERED: KETOROLAC 30 MG/ML VIAL IVP ONE (21:30)
[2023-01-24 22:30] LABS: BASOPHILS % (AUTO) 0.4 % (0.0-2.0); EOSINOPHILS # (AUTO) 0.1 K/uL (0-0.4); HEMOGLOBIN 14.4 g/dL (12.0-16.0); LYMPHOCYTES # (AUTO) 1.3 K/uL (2.5-16.5); LYMPHOCYTES % (AUTO) 18.1 % (20.5-51.1); MEAN CORPUSCULAR HEMOGLOBIN 31 pg (27-31); MEAN CORPUSCULAR HGB CONC 34 g/dL (33-37); MEAN CORPUSCULAR VOLUME 92.9 fL (80-94); MONOCYTES % (AUTO) 13.8 % (1.7-9.3); NEUTROPHILS # (AUTO) 4.6 K/uL (1.8-7.7); NEUTROPHILS % (AUTO) 65.7 % (42.2-75.2); PLATELET COUNT (AUTO) 154 K/uL (140-450); RED BLOOD CELL COUNT(AUTO) 4.63 MIL/uL (4.20-5.40); RED CELL DISTRIBUTION WIDTH 13.5 % (11.6-13.7)
[2023-01-24 22:45] LABS: ALANINE AMINOTRANSFERASE 14 U/L (12-78); ALBUMIN 3.4 g/dL (3.4-5.0); ALKALINE PHOSPHATASE 47 U/L (50-136); ANION GAP 9.7 (8-16); ASPARTATE AMINOTRANSFERASE 24 U/L (15-37); CALCIUM 8.5 mg/dL (8.5-10.1); CARBON DIOXIDE 28.8 mmol/L (21-32); CHLORIDE 105 mmol/L (98-107); CREATININE 0.8 mg/dL (0.6-1.3); GLUCOSE 113 mg/dL (74-106); POTASSIUM 3.5 mmol/L (3.5-5.1); SODIUM SERUM 140 mmol/L (136-145); TOTAL BILIRUBIN 0.5 mg/dL (0.0-1.0); TOTAL PROTEIN, SERUM 6.9 g/dL (6.4-8.2); UREA NITROGEN, BLOOD 18 mg/dL (7-18)
[2023-01-24] MEDS ORDERED: KETOROLAC 30 MG/ML VIAL ONE (23:00)
[2023-01-24] MEDS ORDERED: ONDANSETRON 4 MG/2 ML VIAL IM/IVP PRN (23:40)
[2023-01-24] MEDS ORDERED: DOCUSATE SODIUM 100 MG GELCAP PO PRN (23:40)
[2023-01-24] MEDS ORDERED: guaiFENesin DM 200/20 MG-10 ML 10 ML UDC PO PRN (23:40)
[2023-01-24] MEDS ORDERED: POTASSIUM CHLORIDE 10 MEQ TABER PO PRN (23:40)
[2023-01-24] MEDS ORDERED: ACETAMINOPHEN 325 MG TAB PO PRN (23:40)
[2023-01-24] MEDS ORDERED: ZOLPIDEM 5 MG TAB PO PRN (23:40)
[2023-01-25] VITALS (8 sets, daily range): BP systolic 122–155; BP diastolic 67–88; PULSE 69–109; RESP 18; TEMP 96.8–97.5; O2SAT 95–98
[2023-01-25] MEDS: NACL 0.9% 1,000 ML IV SCH ×3 (02:18→20:55)
[2023-01-25 05:43] LABS: BASOPHILS % (AUTO) 0.4 % (0.0-2.0); EOSINOPHILS # (AUTO) 0.1 K/uL (0-0.4); EOSINOPHILS % (AUTO) 2.6 % (0.0-4.0); HEMOGLOBIN 13.7 g/dL (12.0-16.0); LYMPHOCYTES # (AUTO) 1.6 K/uL (2.5-16.5); LYMPHOCYTES % (AUTO) 27.3 % (20.5-51.1); MEAN CORPUSCULAR HEMOGLOBIN 31 pg (27-31); MEAN CORPUSCULAR HGB CONC 33 g/dL (33-37); MEAN CORPUSCULAR VOLUME 92.6 fL (80-94); MONOCYTES % (AUTO) 17.7 % (1.7-9.3); PLATELET COUNT (AUTO) 135 K/uL (140-450); RED BLOOD CELL COUNT(AUTO) 4.43 MIL/uL (4.20-5.40); RED CELL DISTRIBUTION WIDTH 13.1 % (11.6-13.7); WHITE BLOOD COUNT (AUTO) 5.8 K/uL (4.8-10.8)
[2023-01-25 06:24] LABS: ALANINE AMINOTRANSFERASE 19 U/L (12-78); ALBUMIN 3.2 g/dL (3.4-5.0); ALKALINE PHOSPHATASE 40 U/L (50-136); ANION GAP 10.8 (8-16); ASPARTATE AMINOTRANSFERASE 21 U/L (15-37); CALCIUM 8.2 mg/dL (8.5-10.1); CARBON DIOXIDE 27.4 mmol/L (21-32); CHLORIDE 106 mmol/L (98-107); CREATININE 0.8 mg/dL (0.6-1.3); GLUCOSE 100 mg/dL (74-106); POTASSIUM 3.2 mmol/L (3.5-5.1); SODIUM SERUM 141 mmol/L (136-145); TOTAL BILIRUBIN 0.6 mg/dL (0.0-1.0); TOTAL PROTEIN, SERUM 6.5 g/dL (6.4-8.2); UREA NITROGEN, BLOOD 17 mg/dL (7-18)
[2023-01-25 08:19] LABS: INR 0.88 (0.8-1.2); PROTHROMBIN TIME 9.3 secs (10.8-13.4)
[2023-01-25] MEDS: PANTOPRAZOLE 40 MG TABEC PO SCH (09:16)
[2023-01-25] MEDS: HYDROcodone/APAP 7.5/325 MG 1 TAB PO PRN (09:19)
[2023-01-26 00:39] LABS: APPEARANCE,URINE CLEAR (CLEAR); BILIRUBIN,URINE NEGATIVE (NEGATIVE); BLOOD, URINE TRACE-I (NEGATIVE); COLOR,URINE YELLOW (YELLOW); LEUKOCYTE ESTERASE ,URINE NEGATIVE (NEGATIVE); NITRITE, URINE POSITIVE (NEGATIVE); PROTEIN,URINE NEGATIVE (NEGATIVE); UGLUCOSE NEGATIVE (NEGATIVE); UROBILINOGEN,URINE 0.2 EU/dL (0.2 - 1)
[2023-01-26 00:54] LABS: BACTERIA,URINE 10-30 (MOD) /HPF (None Seen); MUCUS,URINE 1+ /LPF (None Seen); RBC,URINE 0-5 /HPF (0-5); SQUAMOUS EPITHELIAL CELL,UR 0-3 (FEW) /LPF (0-3 (FEW))
[2023-01-26 04:00] VITALS: BP 172/81; PULSE 75; RESP 18; TEMP 96.9; O2SAT 96
[2023-01-26] MEDS: HYDROcodone/APAP 7.5/325 MG 1 TAB PO PRN ×2 (04:29→09:11)
[2023-01-26 06:43] LABS: HEMATOCRIT 43.6 % (36-48); HEMOGLOBIN 14.7 g/dL (12.0-16.0); MEAN CORPUSCULAR HEMOGLOBIN 31 pg (27-31); MEAN CORPUSCULAR HGB CONC 34 g/dL (33-37); MEAN CORPUSCULAR VOLUME 92.3 fL (80-94); PLATELET COUNT (AUTO) 150 K/uL (140-450); RED BLOOD CELL COUNT(AUTO) 4.72 MIL/uL (4.20-5.40); RED CELL DISTRIBUTION WIDTH 13.3 % (11.6-13.7); WHITE BLOOD COUNT (AUTO) 6.5 K/uL (4.8-10.8)
[2023-01-26 06:53] LABS: ALANINE AMINOTRANSFERASE 13 U/L (12-78); ALBUMIN 3.5 g/dL (3.4-5.0); ALKALINE PHOSPHATASE 42 U/L (50-136); ANION GAP 11.7 (8-16); ASPARTATE AMINOTRANSFERASE 25 U/L (15-37); CALCIUM 8.2 mg/dL (8.5-10.1); CARBON DIOXIDE 27.1 mmol/L (21-32); CHLORIDE 104 mmol/L (98-107); CREATININE 0.8 mg/dL (0.6-1.3); GLUCOSE 106 mg/dL (74-106); POTASSIUM 3.8 mmol/L (3.5-5.1); SODIUM SERUM 139 mmol/L (136-145); TOTAL BILIRUBIN 0.7 mg/dL (0.0-1.0); TOTAL PROTEIN, SERUM 7.1 g/dL (6.4-8.2); UREA NITROGEN, BLOOD 13 mg/dL (7-18)
[2023-01-26 06:55] LABS: BASOPHILS % (MANUAL) 0 % (0-2); EOSINOPHILS % (MANUAL) 2 % (0-4); LYMPHOCYTES % (MANUAL) 17 % (20-46); MONOCYTES % (MANUAL) 15 % (5-12)
[2023-01-26 06:56] LABS: BLASTS, MANUAL % 0 % (0-0); METAMYELOCYTES % 0 % (0-0); MYELOCYTES % 0 % (0-0); OTHER CELLS,MANUAL % 0 (0-0); PROMYELOCYTES % 0 % (0-0)
[2023-01-26] MEDS ORDERED: hydrALAZINE 20 MG/ML VIAL IVP PRN (07:30)
[2023-01-26 08:00] VITALS: PULSE 82; RESP 16; O2SAT 97
[2023-01-26] MEDS: PANTOPRAZOLE 40 MG TABEC PO SCH (09:10)
[2023-01-26] MEDS: amLODIPine 5 MG TAB PO SCH (09:32)
[2023-01-26 16:00] VITALS: BP 112/76; PULSE 98; RESP 16; TEMP 97.7; O2SAT 96
[2023-01-26] MEDS: NACL 0.9% 1,000 ML IV SCH (19:55)
[2023-01-26 20:00] VITALS: BP 120/79; PULSE 94; RESP 19; TEMP 98.2; O2SAT 97
[2023-01-27 05:28] LABS: BASOPHILS % (AUTO) 0.4 % (0.0-2.0); EOSINOPHILS # (AUTO) 0.1 K/uL (0-0.4); EOSINOPHILS % (AUTO) 1.5 % (0.0-4.0); HEMATOCRIT 47.7 % (36-48); LYMPHOCYTES # (AUTO) 1.3 K/uL (2.5-16.5); LYMPHOCYTES % (AUTO) 20.4 % (20.5-51.1); MEAN CORPUSCULAR HEMOGLOBIN 31 pg (27-31); MEAN CORPUSCULAR HGB CONC 34 g/dL (33-37); MEAN CORPUSCULAR VOLUME 92.3 fL (80-94); MONOCYTES # (AUTO) 0.9 K/uL (0.8-1.0); MONOCYTES % (AUTO) 14.2 % (1.7-9.3); NEUTROPHILS % (AUTO) 63.5 % (42.2-75.2); PLATELET COUNT (AUTO) 153 K/uL (140-450); RED BLOOD CELL COUNT(AUTO) 5.16 MIL/uL (4.20-5.40); RED CELL DISTRIBUTION WIDTH 13.4 % (11.6-13.7); WHITE BLOOD COUNT (AUTO) 6.3 K/uL (4.8-10.8)
[2023-01-27 06:24] LABS: ALANINE AMINOTRANSFERASE 19 U/L (12-78); ALBUMIN 3.8 g/dL (3.4-5.0); ALKALINE PHOSPHATASE 47 U/L (50-136); ANION GAP 15.3 (8-16); ASPARTATE AMINOTRANSFERASE 25 U/L (15-37); CALCIUM 8.2 mg/dL (8.5-10.1); CARBON DIOXIDE 25.4 mmol/L (21-32); CHLORIDE 102 mmol/L (98-107); CREATININE 0.8 mg/dL (0.6-1.3); GLUCOSE 115 mg/dL (74-106); POTASSIUM 3.7 mmol/L (3.5-5.1); SODIUM SERUM 139 mmol/L (136-145); TOTAL BILIRUBIN 0.7 mg/dL (0.0-1.0); TOTAL PROTEIN, SERUM 8.1 g/dL (6.4-8.2); UREA NITROGEN, BLOOD 12 mg/dL (7-18)
[2023-01-27 08:00] VITALS: BP 158/92; PULSE 83; PULSE 94; RESP 18; RESP 20; TEMP 97.1; O2SAT 95; O2SAT 99
[2023-01-27] MEDS: amLODIPine 5 MG TAB PO SCH (09:22)
[2023-01-27] MEDS: PANTOPRAZOLE 40 MG TABEC PO SCH (09:22)
[2023-01-27] MEDS ORDERED: CHOL20004 PO (11:00)
[2023-01-27] MEDS ORDERED: ACET-9531 PO (11:55)
== END 2023-01-27 14:10 | disposition home or self-care (01) | DRG 536 ==
LOC: MED 17:30 → MTU 23:38
PROVIDERS: ADMIT Student in an Organized Health Care Education/Training Program; ATTEND Student in an Organized Health Care Education/Training Program
DX: S32.502A Unspecified fracture of left pubis, initial encounter for closed fracture (principal); E44.1 Mild protein-calorie malnutrition; W19.XXXA Unspecified fall, initial encounter; I50.9 Heart failure, unspecified; Z68.21 Body mass index [BMI] 21.0-21.9, adult; I11.0 Hypertensive heart disease with heart failure; E03.9 Hypothyroidism, unspecified; E86.0 Dehydration
CPT/HCPCS: 36415; 71045; 72192; 73502; 80053; 81001; 82306; 85025; 85610; 86886; 86900; 86901; 87081; 87086; 93005; 96374; 97116; 97163-GP; 99285; J0696; J1885; J7060; Q0092

== ENCOUNTER 2023-12-10 21:15 | Emergency (ER) | payer OTHER, BC ==
[~2023-12-10] VITALS: Ht 162.6 cm; Wt 99.8 kg
[2023-12-10 21:15] VITALS: BP 138/70; PULSE 84; RESP 18; TEMP 98.2; O2SAT 98
[~2023-12-10 21:15] MED LIST changes: +ACET-9531 PO; -ACTI300 PO; -CARV6.252 PO; +CHOL20004 PO; -LISI2.5T14 PO; -OXYC5TAB4 PO; -VENL75TA4 PO
[2023-12-10] MEDS ORDERED: KETOROLAC 30 MG/ML VIAL ONE (22:00)
[2023-12-10] MEDS: KETOROLAC 30 MG/ML VIAL IVP ONE (22:15)
[2023-12-10] MEDS ORDERED: MORPHINE SULFATE 4 MG/ML SYR ONE (22:27)
[2023-12-10] MEDS: MORPHINE SULFATE 4 MG/ML SYR IVP ONE (22:42)
[2023-12-10] MEDS: HYDROmorphone PFS 2 MG/ML SYR IVP ONE (23:08)
[2023-12-10] MEDS: NACL 0.9% 1,000 ML IV ONE (23:09)
[2023-12-10 23:59] LABS: BASOPHILS % (AUTO) 0.4 % (0.0-2.0); EOSINOPHILS # (AUTO) 0.1 K/uL (0-0.4); EOSINOPHILS % (AUTO) 0.7 % (0.0-4.0); HEMATOCRIT 45.6 % (36-48); LYMPHOCYTES # (AUTO) 0.9 K/uL (2.5-16.5); LYMPHOCYTES % (AUTO) 10.1 % (20.5-51.1); MEAN CORPUSCULAR HEMOGLOBIN 32 pg (27-31); MEAN CORPUSCULAR HGB CONC 33 g/dL (33-37); MEAN CORPUSCULAR VOLUME 96.1 fL (80-94); MONOCYTES # (AUTO) 0.7 K/uL (0.8-1.0); MONOCYTES % (AUTO) 7.8 % (1.7-9.3); NEUTROPHILS # (AUTO) 7.6 K/uL (1.8-7.7); PLATELET COUNT (AUTO) 158 K/uL (140-450); RED BLOOD CELL COUNT(AUTO) 4.75 MIL/uL (4.20-5.40); WHITE BLOOD COUNT (AUTO) 9.3 K/uL (4.8-10.8)
[2023-12-11 00:11] LABS: ANION GAP 9.2 (8-16); CALCIUM 8.5 mg/dL (8.5-10.1); CARBON DIOXIDE 30.8 mmol/L (21-32); CHLORIDE 104 mmol/L (98-107); CREATININE 0.9 mg/dL (0.6-1.3); GLUCOSE 108 mg/dL (74-106); SODIUM SERUM 140 mmol/L (136-145); UREA NITROGEN, BLOOD 27 mg/dL (7-18)
[2023-12-11 00:14] LABS: INR 0.98 (0.8-1.2); PARTIAL THROMBOPLASTIN TIME 24.4 secs (22-35.6); PROTHROMBIN TIME 10.3 secs (10.8-13.4)
[2023-12-11 00:20] VITALS: O2SAT 94
[2023-12-11 02:21] VITALS: BP 106/42; PULSE 98; RESP 14; TEMP 98.2
== END 2023-12-11 02:21 | disposition short-term general hospital (02) ==
LOC: MED 21:15
DX: S72.351A Displaced comminuted fracture of shaft of right femur, initial encounter for closed fracture (principal); I11.0 Hypertensive heart disease with heart failure; I50.9 Heart failure, unspecified; E03.9 Hypothyroidism, unspecified; Z98.890 Other specified postprocedural states; Z79.899 Other long term (current) drug therapy; W18.39XA Other fall on same level, initial encounter; Y92.89 Other specified places as the place of occurrence of the external cause; Y93.89 Activity, other specified; Y99.8 Other external cause status
CPT/HCPCS: 36415; 70450; 72125; 72192; 73502; 80048; 85025; 85610; 85730; 86886; 86900; 86901; 96361; 96374; 96375; 99285; G0482; J1170; J1885; J2270; J7030; Q0092

== ENCOUNTER 2024-02-08 11:35 | Emergency (ER) | payer OTHER, BC ==
[~2024-02-08] VITALS: Ht 152.4 cm; Wt 56.7 kg
[2024-02-08 11:50] VITALS: BP 151/93; PULSE 85; RESP 16; TEMP 97.8; O2SAT 96
[2024-02-08] MEDS: NACL 0.9% 1,000 ML IV ONE (12:34)
[2024-02-08 12:46] LABS: BASOPHILS % (AUTO) 0.7 % (0.0-2.0); EOSINOPHILS # (AUTO) 0.1 K/uL (0-0.4); EOSINOPHILS % (AUTO) 1.2 % (0.0-4.0); HEMATOCRIT 46.8 % (36-48); HEMOGLOBIN 15.4 g/dL (12.0-16.0); LYMPHOCYTES # (AUTO) 1.6 K/uL (2.5-16.5); LYMPHOCYTES % (AUTO) 27.6 % (20.5-51.1); MEAN CORPUSCULAR HEMOGLOBIN 32 pg (27-31); MEAN CORPUSCULAR HGB CONC 33 g/dL (33-37); MEAN CORPUSCULAR VOLUME 95.8 fL (80-94); MONOCYTES # (AUTO) 0.8 K/uL (0.8-1.0); MONOCYTES % (AUTO) 14.5 % (1.7-9.3); NEUTROPHILS # (AUTO) 3.2 K/uL (1.8-7.7); PLATELET COUNT (AUTO) 186 K/uL (140-450); RED BLOOD CELL COUNT(AUTO) 4.89 MIL/uL (4.20-5.40); RED CELL DISTRIBUTION WIDTH 13.3 % (11.6-13.7); WHITE BLOOD COUNT (AUTO) 5.7 K/uL (4.8-10.8)
[2024-02-08 12:58] LABS: ANION GAP 16.6 (8-16); CALCIUM 9.3 mg/dL (8.5-10.1); CARBON DIOXIDE 25.8 mmol/L (21-32); CHLORIDE 104 mmol/L (98-107); CREATININE 0.7 mg/dL (0.6-1.3); GLUCOSE 108 mg/dL (74-106); POTASSIUM 3.4 mmol/L (3.5-5.1); SODIUM SERUM 143 mmol/L (136-145); UREA NITROGEN, BLOOD 17 mg/dL (7-18)
[2024-02-08 14:05] LABS: THYROID STIMULATING HORMONE 0.74 uIU/mL (0.34-3.74)
[2024-02-08 14:33] LABS: APPEARANCE,URINE TURBID (CLEAR); BILIRUBIN,URINE NEGATIVE (NEGATIVE); BLOOD, URINE TRACE-I (NEGATIVE); LEUKOCYTE ESTERASE ,URINE 2+ (NEGATIVE); NITRITE, URINE NEGATIVE (NEGATIVE); PROTEIN,URINE NEGATIVE (NEGATIVE); UGLUCOSE NEGATIVE (NEGATIVE); UROBILINOGEN,URINE 0.2 EU/dL (0.2 - 1)
[2024-02-08 14:35] LABS: COLOR,URINE AMBER (YELLOW)
[2024-02-08 14:42] LABS: BACTERIA,URINE >30 (MANY) /HPF (None Seen); SQUAMOUS EPITHELIAL CELL,UR 4-10 (MOD) /LPF (0-3 (FEW))
[2024-02-08] MEDS ORDERED: CEPH-588 PO (15:02)
[2024-02-08] MEDS ORDERED: cefTRIAXone 1,000 MG VIAL ONE (15:14)
[2024-02-08 15:37] VITALS: BP 151/93; PULSE 85; RESP 16; TEMP 97.8; O2SAT 96
== END 2024-02-08 15:37 | disposition home or self-care (01) ==
LOC: MED 11:35
DX: N39.0 Urinary tract infection, site not specified (principal); I10 Essential (primary) hypertension; E05.90 Thyrotoxicosis, unspecified without thyrotoxic crisis or storm; R93.0 Abnormal findings on diagnostic imaging of skull and head, not elsewhere classified; Z98.890 Other specified postprocedural states; Z79.899 Other long term (current) drug therapy
CPT/HCPCS: 36415; 70450; 71045; 80048; 81001; 82948; 84443; 84484; 85025; 87086; 87186; 93005; 96361; 96365; 99285; J0696; J7030